=== PATIENT | male | born 1975 | race Caucasian/White ===

== ENCOUNTER 2018-05-20 08:33 | Inpatient (IN) | payer OTHER ==
[2018-05-20 09:42] LABS: BASO % 0.3 % (0.0-2.0); EOS % 0.2 % (0.0-4.0); LYMPH # 2.4 K/uL (1.0-4.3); LYMPH % 15.4 % (20.0-40.0); MEAN CELL VOLUME 84.6 fl (80.0-94.0); MEAN CORPUSCULAR HEMOGLOBIN 30.8 pg (27.0-31.0); MEAN CORPUSCULAR HGB CONC 36.4 g/dL (33.0-37.0); MEAN PLATELET VOLUME 7.8 fl (7.2-11.7); MONO # 0.9 K/uL (0.0-0.8); MONO % 5.7 % (0.0-10.0); NEUT % 78.4 % (50.0-75.0); NRBC % 0.1 % (0.0-0.0); RBC 5.53 Mil/uL (4.40-5.90); WHITE BLOOD COUNT 15.4 K/uL (4.8-10.8)
[2018-05-20 09:57] LABS: ALB/GLOB RATIO 1.1 (1.0-2.1); ALBUMIN 4.7 g/dL (3.5-5.0); ALT/SGPT 113 U/L (21-72); AST/SGOT 40 U/L (17-59); BLOOD UREA NITROGEN 21 mg/dl (9-20); CALCIUM 10.1 mg/dL (8.4-10.2); GFR NON-AFRICAN AMERICAN > 60
--- NOTE | 2018-05-20 10:39 | CT ---
Date of service: 05/20/2018 PROCEDURE: CT HEAD WITHOUT CONTRAST. HISTORY: h/o CVA at [facility]; ?convulsions this morning COMPARISON: None available. TECHNIQUE: Axial computed tomography images were obtained through the head/brain without intravenous contrast. Radiation dose: Total exam DLP = 880.6 mGy-cm. This CT exam was performed using one or more of the following dose reduction techniques: Automated exposure control, adjustment of the mA and/or kV according to patient size, and/or use of iterative reconstruction technique. FINDINGS: HEMORRHAGE: No intracranial hemorrhage. BRAIN: Low density within the right cerebellar hemisphere with edema causing leftward shift of the 4th ventricle. Possible arachnoid cyst along the anterior left sylvian fissure. No atrophy or chronic microvascular ischemic changes. VENTRICLES: Mildly prominent. No hydrocephalus. CALVARIUM: Mild thinning of the left temporal bone adjacent to possible arachnoid cyst. PARANASAL SINUSES: Unremarkable as visualized. No significant inflammatory changes. MASTOID AIR CELLS: Unremarkable as visualized. No inflammatory changes. OTHER FINDINGS: None. IMPRESSION: Low density within the right cerebellar hemisphere with edema causing leftward shift of the 4th ventricle. This is likely related to the reported subacute infarction seen at an outside hospital. Underlying right cerebellar mass could also cause this appearance. The ventricles are mildly prominent which may be related to involutional changes and/or mild obstructive hydrocephalus secondary to mass effect from edema. Correlation with outside imaging is recommended.
--- NOTE | 2018-05-20 11:16 | ED PDOC ---
HPI: Altered Mental Status Time Seen by Provider: 05/20/18 09:01 Chief Complaint (Nursing): Dizziness/Lightheaded History Per: Patient, Family (According to this patient's , Waldemar was recently discharged from [facility] [place] with diagnosis of CVA after he was transferred there from hospital in [place]. Apparently patient had fainted at the local [employer] just prior. Since discharge, he has continued to have headaches. This morning prior to call 911, his noted an episode of diffuse body shaking, rolling of markie eyes and tightening of the extremities. There was no incontinence or tongue biting. This was followed by a period of confusion. In the ER he is awake and alert. He just c/o diffuse headache. There is no report of fever, chills, neck pain or stiffness.) Past Medical History Reviewed: Historical Data, Nursing Documentation, Vital Signs Vital Signs: Last Vital Signs Temp 98.6 F 05/20/18 08:36 Pulse 84 05/20/18 08:36 Resp 17 05/20/18 08:36 BP 147/84 05/20/18 08:36 Pulse Ox 99 05/20/18 08:36 - Medical History PMH: Depression, HTN, Hypercholesterolemia - Family History Family History: States: Unknown Family Hx - Home Medications Home Medications: Ambulatory Orders Medication Instructions Recorded Azithromycin [Zithromax Z-Vamshi] 250 mg PO DAILY #1 tab 02/14/15 Prednisone 3 tab-cap PO QAM #15 tab 02/14/15 - Allergies Allergies/Adverse Reactions: Allergies Allergy/AdvReac Type Severity Reaction Status Date / Time No Known Allergies Allergy Verified 02/14/15 18:07 Review of Systems ROS Statement: Except As Marked, All Systems Reviewed And Found Negative Constitutional: Negative for: Fever Cardiovascular: Negative for: Chest Pain Respiratory: Negative for: Cough Gastrointestinal: Negative for: Nausea, Vomiting Neurological: Positive for: Headache. Negative for: Weakness, Numbness, Altered Mental Status Physical Exam - Reviewed Nursing Documentation Reviewed: Yes Vital Signs Reviewed: Yes - Physical Exam Appears: Positive for: Well, Non-toxic, No Acute Distress Head Exam: Positive for: ATRAUMATIC, NORMAL INSPECTION, NORMOCEPHALIC Skin: Positive for: Normal Color, Warm, DRY Eye Exam: Positive for: Normal appearance, EOMI, PERRL ENT: Positive for: Normal ENT Inspection Neck: Positive for: Normal Cardiovascular/Chest: Positive for: Regular Rate, Rhythm Respiratory: Positive for: CNT, Normal Breath Sounds Gastrointestinal/Abdominal: Positive for: Normal Exam, Soft Back: Positive for: Normal Inspection Extremity: Positive for: Normal ROM Neurologic/Psych: Positive for: Alert, Oriented - Laboratory Results Result Diagrams: 05/20/18 09:20 05/20/18 09:20 - ECG O2 Sat by Pulse Oximetry: 99 Disposition - Clinical Impression Clinical Impression: Seizure, Cerebellar edema - Patient ED Disposition Is Patient to be Admitted: No Doctor Will See Patient In The: Office Counseled Patient/Family Regarding: Diagnosis, Need For Followup - Disposition Disposition: Routine/Home Disposition Time: 11:00 Condition: GUARDED Instructions: Seizures, Adult (DC) - Pt Status Changed To: Hospital Disposition Of: Inpatient - Admit Certification Admit to Inpatient:: After my assessment, the patient will require hospitalization for at least two midnights. This is because of the severity of symptoms shown, intensity of services needed, and/or the medical risk in this patient being treated as an outpatient. - POA Present On Arrival: None
--- NOTE | 2018-05-20 11:37 | CP.PCM.HP ---
Addendum entered and electronically signed by Daljit Suarez MD 05/20/18 19:30: Patient was seen and examined with resident . All chart and clinical data reviewed. Case discussed with resident . Agree with assessment and plan 42 y/o male with recent diagnosis of CVA presented to Ed complaining of headache that has been going on since he was diagnosed with stroke , improving mildly with Fioricet .Pain is located mostly at the top of the head , pressure like Also as per patient had episode of full body shaking and rolling of her eyes Admitted to telemetry and neuro consulted EEG ordered MRI showed :Suspect right and right vermian infarct with hemorrhagic conversion.Secondary mass effect exerts compression on the right posterolateral border of the medulla and inferior hilary with compression of the 4th ventricle. Mild dilatation of the 3rd and lateral ventricles. Suspect small arachnoid cyst left sylvian fissure region. Continue Neuro checks Hold ASA and lovenox due to hemorrhagic conversion Permissive hypertension Accucheck control Original Note: History of Present Illness - History of Present Illness History of Present Illness: 42 yo m with history of DM2 (recently diagnosed) presents to the E.D. with complaint of headache and dizziness. Part of the history was obtained from the E.D. physician as patient was lethargic and the , who provided the history initially to the E.D physician, was not present in the room upon admission. Patient had a CVA one week ago and went to [facility]. Patient reports that since then he has had headaches and dizziness. He states that the headache is generalized and not specific at any location. Dizziness is described as his head spinning but not the room spinning, reports that he needs assistance everytime he has to get up from sitting or lying down. He states that he has had decrease in appetite. He denies decrease in strength, change in vision, falling, or trauma. 's recollection of events, as told by E.D physician: called 911 this morning because patient had full body shaking episode associated with rolling of eyes and tightening of the extremities. Denied urinary incontinence and tongue biting. PMD: does not have one FH: Mother and father both have a history stroke, patient unable to state when. SH: social drinker. Denies smoking or illicit drug use. 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 Surgical history: Denies Medical history: DM2- diagnosed last week. Medications: Pantoprazole 40mg po Daily, Norvasc 10mg po Daily, Aspirin 81mg po Daily, Lipitor 40mg po Daily, Lisinopril 40mg po Daily, Metformin 500mg po BID. ED course: V/S: 98.6F; HR: 84 ; BP: 147/84 O2Sat: 99% RA. - CBC: 15.4 > 17/46.8 < 413. - CMP: 133/ 4.8 ; 94/28 ; 21/0.8 < 150 AST/ ALT: 40/113 - CT scan of head w/o contrast: Cerebellar edema with leftward shift of 4th ventricle possibly related to subacute infarction seen at outside hospital. Underlying right cerebellar mass could cause this appearance. Patient being admitted to telemetry. Present on Admission - Present on Admission Any Indicators Present on Admission: No History of DVT/PE: No History of Uncontrolled Diabetes: No Urinary Catheter: No Decubitus Ulcer Present: No Past Patient History - Past Social History Smoking Status: Never Smoked - CARDIAC Hx Hypercholesterolemia: Yes Hx Hypertension: Yes - PSYCHIATRIC Hx Depression: Yes - SURGICAL HISTORY Hx Surgeries: No - ANESTHESIA Hx Anesthesia: No Meds Allergies/Adverse Reactions: Allergies Allergy/AdvReac Type Severity Reaction Status Date / Time No Known Allergies Allergy Verified 02/14/15 18:07 Physical Exam - Constitutional Appears: Non-toxic, No Acute Distress Additional comments: Lethargic - Head Exam Head Exam: NORMAL INSPECTION - Eye Exam Eye Exam: Normal appearance. absent: Nystagmus, Scleral icterus Pupil Exam: NORMAL ACCOMODATION, PERRL - ENT Exam ENT Exam: Mucous Membranes Moist - Respiratory Exam Respiratory Exam: Clear to Auscultation Bilateral, NORMAL BREATHING PATTERN. absent: Decreased Breath Sounds, Rales, Rhonchi, Wheezes, Stridor - Cardiovascular Exam Cardiovascular Exam: REGULAR RHYTHM, RRR, +S1, +S2. absent: Gallop, Rubs, +S4, Systolic Murmur - GI/Abdominal Exam GI & Abdominal Exam: Normal Bowel Sounds, Soft. absent: Distended, Firm, Guarding, Rebound, Rigid, Tenderness - Extremities Exam Extremities exam: Positive for: normal inspection, pedal pulses present. Negative for: calf tenderness, pedal edema, tenderness - Neurological Exam Additional comments: Lethargic. Patient is able to perform finger to nose appropriately. Unable to a ssess gait as patient is dizzy. Strength 5/5 bilaterally all extremities. - Psychiatric Exam Psychiatric exam: Normal Affect - Skin Skin Exam: Dry, Intact, Normal Color, Warm Results - Vital Signs Recent Vital Signs: Last Vital Signs Temp 98.6 F 05/20/18 08:36 Pulse 84 05/20/18 08:36 Resp 17 05/20/18 08:36 BP 147/84 05/20/18 08:36 Pulse Ox 99 05/20/18 11:19 - Labs Result Diagrams: 05/20/18 09:20 05/20/18 09:20 Labs: Laboratory Results - last 24 hr 05/20/18 05/20/18 05/20/18 08:37 09:20 09:20 WBC 15.4 H D RBC 5.53 Hgb 17.0 Hct 46.8 MCV 84.6 D MCH 30.8 MCHC 36.4 RDW 13.0 Plt Count 413 H D MPV 7.8 Neut % (Auto) 78.4 H Lymph % (Auto) 15.4 L [place] % (Auto) 5.7 Eos % (Auto) 0.2 Baso % (Auto) 0.3 Neut # (Auto) 12.0 H Lymph # (Auto) 2.4 [place] # (Auto) 0.9 H Eos # (Auto) 0.0 Baso # (Auto) 0.0 Sodium 133 Potassium 4.8 Chloride 94 L Carbon Dioxide 28 Anion Gap 16 BUN 21 H Creatinine 0.8 Est GFR ( Amer) > 60 Est GFR (Non-Af Amer) > 60 POC Glucose (mg/dL) 152 H Random Glucose 150 H Calcium 10.1 Total Bilirubin 1.1 AST 40 ALT 113 H D Alkaline Phosphatase 80 Total Protein 8.9 H Albumin 4.7 Globulin 4.1 H Albumin/Globulin Ratio 1.1 Assessment & Plan (1) Seizure Status: Acute (2) Diabetes type 2, controlled Status: Acute (3) DVT prophylaxis Status: Acute - Assessment and Plan (Free Text) Assessment: 42 yo m with history of DM2 (recently diagnosed) presents to the E.D. with complaint of headache and dizziness found to have possible seizure-like activity this morning and new findings on CT scan of head admitted to r/o seizure and acute vs. subacute stroke. 1. Seizure - Given previous history of CVA at previous hospital last week and new CT findings of cerebellar edema, possibly secondary to CVA. - Admitted to telemetry for close monitoring - Patient placed on fall precautions. - Electrolytes within normal limits. - Neuro check Q4H - Neurology consult appreciated - EEG ordered 2. Acute vs. subacute stroke - CT scan of head w/o contrast: Cerebellar edema with leftward shift of 4th ventricle possibly related to subacute infarction seen at outside hospital. Underlying right cerebellar mass could cause this appearance. Patient being admitted to telemetry. - MRI with and without contrast - Continue Aspirin and atorvastatin - Neurology consult appreciated - Bed elevated to 45 degrees - Speech evaluation placed - PT/OT evaluation placed - Neuro checks Q4H 3. Leukocytosis - Likely reactive - Continue to monitor. 4. Hypertension - Continue home medication of lisinopril 10mg and Norvasc 10mg daily. - Continue to monitor V/S 5. DM type 2 - Continue Metformin 500mg BID - Accuchecks - Hypoglycemia protocol - Continue to monitor glucose. 6. DVT prophylaxis: - Lovenox 40mg sc daily.
[2018-05-20] MEDS ORDERED: Glucagon Recombinant 1 mg Inj IM PRN (12:07)
[2018-05-20] MEDS ORDERED: Dextrose 50% SYRINGE Inj (50 ml) IV PRN (12:07)
[2018-05-20 12:16] LABS: PROLACTIN 17.1 ng/mL (3.7-17.9)
[2018-05-20] MEDS ORDERED: Gadodiamide 287 MG/ML VIAL (15ML) IV ONE (13:27)
[2018-05-20] MEDS ORDERED: Sodium Chloride 0.9% 500 ML IV SCH (15:30)
[2018-05-20] MEDS: Insulin Lispro (humaLOG) 100 Units/ml Inj SC SCH ×2 (16:39→21:51)
[2018-05-20 16:47] VITALS: BMI 30.7
--- NOTE | 2018-05-20 17:16 | MRI ---
Date of service: 05/20/2018. PROCEDURE: MRI BRAIN WITH AND WITHOUT CONTRAST.. COMPARISON: Comparison made with prior CT scan brain obtained earlier same day. TECHNIQUE: Multiplanar, multisequence MR images of the brain were obtained with and without intravenous contrast enhancement.. FINDINGS: HEMORRHAGE: The current study reveals a large area of prolonged T2 signal involving the right inferomedial cerebellar hemisphere and right vermis with a more localized area of bright T1 signal along the medial aspect of the right cerebral hemisphere that corresponds to darker T2 signal . Extensive surface enhancement of the cerebellar folia. Findings could hemorrhagic infarct with hemorrhagic degradation intracellular methemoglobin). There is secondary mass effect with compression of overlying cerebellar folia and compression of the right aspect of the 4th ventricle and right posterolateral border of the middle and inferior hilary.. There is inferior displacement of the right cerebellar tonsil. BRAIN PARENCHYMA: Minor slightly confluent prolonged T2 signal changes seen in the periventricular white matter which is of uncertain etiology though that probably represents mild FLAIR related CSF interface artifact. The there are a few tiny focal areas of increased T2 signal scattered about the frontal subcortical and deeper white matter right cerebral hemisphere nonspecific. None of these changes exhibit contrast enhancement. Mild generalized volume loss. Suspect small arachnoid cyst left sylvian fissure region. ENHANCEMENT: No enhancing parenchymal nor extra-axial masses.. No evidence of abnormal meningeal enhancement VENTRICLES: There is mild dilatation of the 3rd and lateral ventricles. CRANIUM: Unremarkable. ORBITS: Orbits and contents unremarkable.. Small focal area polypoid like mucosal thickening PARANASAL SINUSES/MASTOIDS: At least 2 small focal areas of polypoid like mucosal thickening floor left maxillary antrum. VASCULAR SYSTEM: Visualized major vascular flow voids at skull base patent OTHER FINDINGS: None. IMPRESSION: Suspect right and right vermian infarct with hemorrhagic conversion.. Secondary mass effect exerts compression on the right posterolateral border of the medulla and inferior hilary with compression of the 4th ventricle. Mild dilatation of the 3rd and lateral ventricles. Suspect small arachnoid cyst left sylvian fissure region. See above discussion for additional details and findings. The discussed with 4 N nurse Marrero at approximately 4:50 p.m. with written down and read back verification.
[2018-05-20] MEDS: Oxycodone/Acetaminophen 5/325 mg Tab PO PRN (21:04)
[2018-05-21] MEDS: Oxycodone/Acetaminophen 5/325 mg Tab PO PRN ×3 (04:25→17:28)
[2018-05-21 05:56] LABS: BASO % 0.2 % (0.0-2.0); EOS # 0.1 K/uL (0.0-0.7); EOS % 0.6 % (0.0-4.0); HEMOGLOBIN 16.9 g/dL (12.0-18.0); LYMPH # 3.4 K/uL (1.0-4.3); LYMPH % 24.1 % (20.0-40.0); MEAN CELL VOLUME 84.9 fl (80.0-94.0); MEAN CORPUSCULAR HEMOGLOBIN 30.7 pg (27.0-31.0); MEAN CORPUSCULAR HGB CONC 36.2 g/dL (33.0-37.0); MEAN PLATELET VOLUME 8.2 fl (7.2-11.7); MONO % 7.1 % (0.0-10.0); NEUT # 9.6 K/uL (1.8-7.0); NRBC % 0.3 % (0.0-0.0); RBC 5.51 Mil/uL (4.40-5.90); RED CELL DISTRIBUTION WIDTH 13.2 % (11.5-14.5); WHITE BLOOD COUNT 14.2 K/uL (4.8-10.8)
[2018-05-21 05:58] LABS: BLOOD UREA NITROGEN 25 mg/dl (9-20); GFR NON-AFRICAN AMERICAN > 60
[2018-05-21] MEDS: Insulin Lispro (humaLOG) 100 Units/ml Inj SC SCH ×4 (08:24→21:34)
[2018-05-21] MEDS ORDERED: Pneumococcal 23-Valent Vaccine IM ONE (08:35)
[2018-05-21] MEDS ORDERED: Influenza Vaccine 60 MCG/0.5 ML SYR (3 yr & up) IM ONE (08:35)
[2018-05-21] MEDS ORDERED: Enoxaparin 40 mg Syringe SC SCH (09:00)
--- NOTE | 2018-05-21 09:27 | CP.PCM.PN ---
Addendum entered and electronically signed by Adan Friedman MD 05/21/18 20:17: Patient to be transferred to ICU as per Neurology recommendations for continued evaluation and observation. Addendum entered and electronically signed by Daljit Suarez MD 05/21/18 14:35: Patient seen and examined bedside . Complains of intractable headache MRI results appreciated Hemodynamically stable waiting on medical records from [facility] waiting on neuro consult with Dr. Machuca Discussed with resident . Agree with assessment and plan Continue telemetry monitoring Original Note: Subjective - Date & Time of Evaluation Date of Evaluation: 05/21/18 Time of Evaluation: 07:00 - Subjective Subjective: Patient seen and examined at bedside. HE is lying down clutching his head. He is reporting that he is dizzy and he has a 6/10 headache- unchanged. Denies chest pain, shortness of breath, vision changes, weakness or tingling. Objective - Vital Signs/Intake and Output Vital Signs (last 24 hours): Temp Pulse Resp BP Pulse Ox 98.2 F 85 18 122/87 98 05/21/18 07:42 05/21/18 08:18 05/21/18 07:42 05/21/18 07:42 05/21/18 07:42 - Medications Medications: Current Medications Acetaminophen (Tylenol 325mg Tab) 650 mg PO Q6 PRN PRN Reason: Pain, moderate (4-7) Amlodipine Besylate (Norvasc) 10 mg PO DAILY [facility] Atorvastatin Calcium (Lipitor) 40 mg PO DAILY [facility] Dextrose (Dextrose 50% Inj) 0 ml IV STAT PRN; Protocol PRN Reason: Hypoglycemia Protocol Dextrose (Glutose 15) 0 gm PO ONCE PRN; Protocol PRN Reason: Hypoglycemia Protocol Glucagon (Glucagen Diagnostic Kit) 0 mg IM STAT PRN; Protocol PRN Reason: Hypoglycemia Protocol Insulin Human Lispro (Humalog) [address] [facility]; Protocol Last Admin: 05/21/18 08:24 Dose: Not Given Lisinopril (Zestril) 10 mg PO DAILY [facility] Metformin HCl (Glucophage) 500 mg PO BID [facility] Last Admin: 05/20/18 16:37 Dose: 500 mg Oxycodone/Acetaminophen (Percocet 5/325 Mg Tab) 1 tab PO Q6 PRN PRN Reason: Pain, severe (8-10) Stop: 05/23/18 16:30 Last Admin: 05/21/18 04:25 Dose: 1 tab Pantoprazole Sodium (Protonix Ec Tab) 40 mg PO DAILY [facility] - Labs Labs: 05/21/18 05:25 05/21/18 05:25 - Constitutional Appears: Non-toxic, No Acute Distress (Patient is lying down clutching his head.) - ENT Exam ENT Exam: Mucous Membranes Moist - Respiratory Exam Respiratory Exam: Clear to Ausculation Bilateral, NORMAL BREATHING PATTERN. absent: Decreased Breath Sounds, Rales, Rhonchi, Wheezes, Stridor - Cardiovascular Exam Cardiovascular Exam: REGULAR RHYTHM, +S1, +S2. absent: Clicks, Diastolic murmur, Gallop, RRR, +S4, Murmur - GI/Abdominal Exam GI & Abdominal Exam: Soft, Normal Bowel Sounds. absent: Distended, Firm, Guarding, Rigid, Tenderness, Pulsatile Mass - Extremities Exam Extremities Exam: Normal Inspection. absent: Calf Tenderness, Pedal Edema, Tend erness - Neurological Exam Neurological Exam: Oriented x3 (Patient is closing his eyes and states he has a bad headache- clutching his head. Strength 5/5 bilateral extremities. Sensation in tact. ) - Psychiatric Exam Psychiatric exam: Normal Affect - Skin Skin Exam: Dry, Intact, Normal Color, Warm Assessment and Plan (1) Seizure Status: Acute (2) Diabetes type 2, controlled Status: Acute (3) DVT prophylaxis Status: Acute - Assessment and Plan (Free Text) Assessment: 42 yo m with history of DM2 (recently diagnosed) presents to the E.D. with complaint of headache and dizziness found to have possible seizure-like activity this morning and new findings on CT scan of head admitted to r/o seizure and acute vs. subacute stroke. Plan: 1. Seizure - Given previous history of CVA at previous hospital last week and new CT findings of cerebellar edema, possibly secondary to CVA. - Admitted to telemetry for close monitoring - Patient placed on fall precautions. - Electrolytes within normal limits. - Neuro check Q4H - Neurology consult appreciated - EEG ordered 2. Acute vs. subacute stroke - MRI showed :Suspect right and right vermian infarct with hemorrhagic conversion.Secondary mass effect exerts compression on the right posterolateral border of the medulla and inferior hilary with compression of the 4th ventricle. Mild dilatation of the 3rd and lateral ventricles. Suspect small arachnoid cyst left sylvian fissure region. - Neurology consult appreciated - Bed elevated to 45 degrees - Neuro checks Q4H - Hold ASA and lovenox due to hemorrhagic conversion - Permissive hypertension - Accucheck control 3. Leukocytosis - Likely reactive - Continue to monitor. 4. Hypertension - chronic - Continue home medication of lisinopril 10mg and Norvasc 10mg daily. - Continue to monitor V/S 5. DM type 2 - Continue Metformin 500mg BID - Accuchecks - Hypoglycemia protocol - Continue to monitor glucose. 6. DVT prophylaxis: - SCD's
[2018-05-21 09:56] LABS: INR 1.2
[2018-05-21] MEDS: Pantoprazole 40 mg EC Tab PO SCH (09:56)
[2018-05-21 10:14] LABS: HDL CHOLESTEROL 46 MG/DL (30-70)
[2018-05-21 10:25] LABS: LDL CHOLESTEROL 112 mg/dL (0-129)
[2018-05-21] MEDS ORDERED: Mannitol 12.5 gm/50 ml Inj IV ONE ×2 (19:00→19:14)
[2018-05-21] MEDS ORDERED: Dexamethasone 4 mg/1 ml IV ONE (19:00)
--- NOTE | 2018-05-21 21:13 | CP.PCM.CON ---
History of Present Illness - History of Present Illness History of Present Illness: Reason for Consult: ICU Obs for cerebellar bleed HPI: 42 M PMH HTN, NIDDM2, admitted yesterday for seizure, currently hemodynamically stable, was recently discharged from [facility] S/P CVA after being transferred there about a week ago from a local community hospital. CT head showed low density R cerebellar hemisphere with edema causing L shift of 4th ventricle, likely related to reported subacute infarction seen at outside hospital. MRI brain showed R vermian infarct with hemorrhagic conversion. As per neurology, transfer to ICU this evening for observation in ICU. Pt is HD stable. NAD. ROS: per HPI all other systems reviewed and negative. Past Patient History - Past Medical History & Family History Past Medical History?: Yes - Past Social History Smoking Status: Never Smoked - CARDIAC Hx Hypercholesterolemia: Yes Hx Hypertension: Yes - PULMONARY Hx Respiratory Disorders: No - NEUROLOGICAL Hx Neurological Disorder: Yes HX Cerebrovascular Accident: Yes - HEENT Hx HEENT Problems: No - RENAL Hx Chronic Kidney Disease: No - ENDOCRINE/METABOLIC Hx Diabetes Mellitus Type 2: Yes - HEMATOLOGICAL/ONCOLOGICAL Hx Blood Disorders: No - INTEGUMENTARY Hx Dermatological Problems: No - MUSCULOSKELETAL/RHEUMATOLOGICAL Hx Musculoskeletal Disorders: No Hx Falls: No - GASTROINTESTINAL Hx Gastrointestinal Disorders: No - GENITOURINARY/GYNECOLOGICAL Hx Genitourinary Disorders: No - PSYCHIATRIC Hx Psychophysiologic Disorder: Yes Hx Depression: Yes Hx Substance Use: No - SURGICAL HISTORY Hx Surgeries: No - ANESTHESIA Hx Anesthesia: No Hx Anesthesia Reactions: No Hx Malignant Hyperthermia: No Has any member of the family had a problem w/ anesthesia?: No Meds Allergies/Adverse Reactions: Allergies Allergy/AdvReac Type Severity Reaction Status Date / Time No Known Allergies Allergy Verified 02/14/15 18:07 - Medications Medications: Current Medications Acetaminophen (Tylenol 325mg Tab) 650 mg PO Q6 PRN PRN Reason: Pain, moderate (4-7) Amlodipine Besylate (Norvasc) 10 mg PO DAILY [facility] Last Admin: 05/21/18 09:56 Dose: 10 mg Atorvastatin Calcium (Lipitor) 40 mg PO DAILY [facility] Last Admin: 05/21/18 09:55 Dose: 40 mg Dextrose (Dextrose 50% Inj) 0 ml IV STAT PRN; Protocol PRN Reason: Hypoglycemia Protocol Dextrose (Glutose 15) 0 gm PO ONCE PRN; Protocol PRN Reason: Hypoglycemia Protocol Glucagon (Glucagen Diagnostic Kit) 0 mg IM STAT PRN; Protocol PRN Reason: Hypoglycemia Protocol Insulin Human Lispro (Humalog) 0 units SC ACHS [facility]; Protocol Last Admin: 05/21/18 17:26 Dose: Not Given Lisinopril (Zestril) 10 mg PO DAILY [facility] Last Admin: 05/21/18 09:56 Dose: 10 mg Metformin HCl (Glucophage) 500 mg PO BID [facility] Last Admin: 05/21/18 17:25 Dose: 500 mg Oxycodone/Acetaminophen (Percocet 5/325 Mg Tab) 1 tab PO Q6 PRN PRN Reason: Pain, severe (8-10) Stop: 05/23/18 16:30 Last Admin: 05/21/18 17:28 Dose: 1 tab Pantoprazole Sodium (Protonix Ec Tab) 40 mg PO DAILY [facility] Last Admin: 05/21/18 09:56 Dose: 40 mg Physical Exam - Constitutional Appears: Non-toxic, No Acute Distress - Head Exam Head Exam: NORMAL INSPECTION, NORMOCEPHALIC - Eye Exam Eye Exam: EOMI, Normal appearance, PERRL Pupil Exam: NORMAL ACCOMODATION, PERRL - ENT Exam ENT Exam: Mucous Membranes Moist, Normal Exam - Neck Exam Neck exam: Positive for: Normal Inspection - Respiratory Exam Respiratory Exam: Clear to Auscultation Bilateral, NORMAL BREATHING PATTERN - Cardiovascular Exam Cardiovascular Exam: RRR, +S1, +S2 - GI/Abdominal Exam GI & Abdominal Exam: Normal Bowel Sounds, Soft. absent: Mass - Extremities Exam Extremities exam: Positive for: normal inspection. Negative for: tenderness - Neurological Exam Neurological exam: Alert, Oriented x3 Additional comments: no focal deficits - Psychiatric Exam Psychiatric exam: Normal Affect, Normal Mood Results - Vital Signs Recent Vital Signs: Last Vital Signs Temp 98.3 F 05/21/18 19:23 Pulse 90 05/21/18 19:23 Resp 20 05/21/18 19:23 BP 121/79 05/21/18 19:23 Pulse Ox 98 05/21/18 19:23 - Labs Result Diagrams: 05/21/18 05:25 05/21/18 05:25 Labs: Laboratory Results - last 24 hr 05/20/18 05/20/18 05/21/18 10:58 21:27 05:25 WBC RBC Hgb Hct MCV MCH MCHC RDW Plt Count MPV Neut % (Auto) Lymph % (Auto) [place] % (Auto) Eos % (Auto) Baso % (Auto) Neut # (Auto) Lymph # (Auto) [place] # (Auto) Eos # (Auto) Baso # (Auto) PT INR APTT Sodium 134 Potassium 4.5 Chloride 95 L Carbon Dioxide 25 Anion Gap 19 BUN 25 H Creatinine 0.7 L Est GFR ( Amer) > 60 Est GFR (Non-Af Amer) > 60 POC Glucose (mg/dL) 97 Random Glucose 123 H Hemoglobin A1c 6.9 H Calcium 10.0 Triglycerides Cholesterol LDL Cholesterol Direct HDL Cholesterol 05/21/18 05/21/18 05/21/18 05:25 05:49 09:30 WBC 14.2 H RBC 5.51 Hgb 16.9 Hct 46.8 MCV 84.9 MCH 30.7 MCHC 36.2 RDW 13.2 Plt Count 399 MPV 8.2 Neut % (Auto) 68.0 Lymph % (Auto) 24.1 [place] % (Auto) 7.1 Eos % (Auto) 0.6 Baso % (Auto) 0.2 Neut # (Auto) 9.6 H Lymph # (Auto) 3.4 [place] # (Auto) 1.0 H Eos # (Auto) 0.1 Baso # (Auto) 0.0 PT 13.0 INR 1.2 APTT 30.0 Sodium Potassium Chloride Carbon Dioxide Anion Gap BUN Creatinine Est GFR ( Amer) Est GFR (Non-Af Amer) POC Glucose (mg/dL) 106 Random Glucose Hemoglobin A1c Calcium Triglycerides Cholesterol LDL Cholesterol Direct HDL Cholesterol 05/21/18 05/21/18 05/21/18 09:30 11:14 15:51 WBC RBC Hgb Hct MCV MCH MCHC RDW Plt Count MPV Neut % (Auto) Lymph % (Auto) [place] % (Auto) Eos % (Auto) Baso % (Auto) Neut # (Auto) Lymph # (Auto) [place] # (Auto) Eos # (Auto) Baso # (Auto) PT INR APTT Sodium Potassium Chloride Carbon Dioxide Anion Gap BUN Creatinine Est GFR ( Amer) Est GFR (Non-Af Amer) POC Glucose (mg/dL) 129 H 142 H Random Glucose Hemoglobin A1c Calcium Triglycerides 155 H Cholesterol 183 LDL Cholesterol Direct 112 HDL Cholesterol 46 Assessment & Plan - Assessment and Plan (Free Text) Plan: 42 M PMH HTN, NIDDM2, admitted yesterday for seizure, currently hemodynamically stable, was recently discharged from [facility] S/P CVA after being transferred there about a week ago from a local community hospital. CT head showed low density R cerebellar hemisphere with edema causing L shift of 4th ventricle, likely related to reported subacute infarction seen at outside hospital. MRI brain showed R vermian infarct with hemorrhagic conversion. As per neurology, transfer to ICU this evening for observation in ICU. Pt is HD stable. NAD. s/p CVA, cerebellar infarct with hemorrhagic conversion - Neurology consult Dr. Machuca - monitor in ICU 24 hours for possible further complications such as worsening bleed and herniation - neurochecks q1 hours - repeat head CT read pending - no focal deficits - HD stable, nad.
--- NOTE | 2018-05-21 23:25 | CP.PCM.CON ---
History of Present Illness - History of Present Illness History of Present Illness: 42 yr old male who was admitted to [facility] and was found to have a subacute right cerebellar infarct/hypodensity with different densities, with mass effect on the third and fourth ventricle. Mr. Dias was apparently evaluated at [facility] and already was diagnosed with this lesion. It is unclear if he had a neurology or neurosurgical consult, but he was discharged and presented to [facility]. MRI brain was performed as well and shows that he has, inaddition, areas of hemorrhage within acute right vermian stroke with 4th ventricle compression. Patient has a headache, and is awake but transfer to ICU was arranged in light o f the herniation and cerebellar location. Headache is 9/10, throbbing in nature, associated with photophobia, not relieved by fioricet. Decadron 8mg IV started as well as mannitol and neurosurgical consult placed. Patient transferred to ICu and is stable with neuro checks. ROS; headache, nausea, no vomiting. no weakness, no diarrhea. PMH/PSH: no htn, no dm. FH/SH; Possible smoking history. All: nkda On exam: Neurological exam is normal except for right hand dysmetria. gait not ass essed. AAOx3. PERRl. Cn 2-12 normal. no weakness, no sensory deficits. Past Patient History - Past Medical History & Family History Past Medical History?: Yes - Past Social History Smoking Status: Never Smoked - CARDIAC Hx Hypercholesterolemia: Yes Hx Hypertension: Yes - PULMONARY Hx Respiratory Disorders: No - NEUROLOGICAL Hx Neurological Disorder: Yes HX Cerebrovascular Accident: Yes - HEENT Hx HEENT Problems: No - RENAL Hx Chronic Kidney Disease: No - ENDOCRINE/METABOLIC Hx Diabetes Mellitus Type 2: Yes - HEMATOLOGICAL/ONCOLOGICAL Hx Blood Disorders: No - INTEGUMENTARY Hx Dermatological Problems: No - MUSCULOSKELETAL/RHEUMATOLOGICAL Hx Musculoskeletal Disorders: No Hx Falls: No - GASTROINTESTINAL Hx Gastrointestinal Disorders: No - GENITOURINARY/GYNECOLOGICAL Hx Genitourinary Disorders: No - PSYCHIATRIC Hx Psychophysiologic Disorder: Yes Hx Depression: Yes Hx Substance Use: No - SURGICAL HISTORY Hx Surgeries: No - ANESTHESIA Hx Anesthesia: No Hx Anesthesia Reactions: No Hx Malignant Hyperthermia: No Has any member of the family had a problem w/ anesthesia?: No Meds Allergies/Adverse Reactions: Allergies Allergy/AdvReac Type Severity Reaction Status Date / Time No Known Allergies Allergy Verified 02/14/15 18:07 - Medications Medications: Current Medications Acetaminophen (Tylenol 325mg Tab) 650 mg PO Q6 PRN PRN Reason: Pain, moderate (4-7) Last Admin: 05/21/18 22:41 Dose: 650 mg Amlodipine Besylate (Norvasc) 10 mg PO DAILY [facility] Last Admin: 05/21/18 09:56 Dose: 10 mg Atorvastatin Calcium (Lipitor) 40 mg PO DAILY [facility] Last Admin: 05/21/18 09:55 Dose: 40 mg Dextrose (Dextrose 50% Inj) 0 ml IV STAT PRN; Protocol PRN Reason: Hypoglycemia Protocol Dextrose (Glutose 15) 0 gm PO ONCE PRN; Protocol PRN Reason: Hypoglycemia Protocol Glucagon (Glucagen Diagnostic Kit) 0 mg IM STAT PRN; Protocol PRN Reason: Hypoglycemia Protocol Insulin Human Lispro (Humalog) 0 units SC [facility]; Protocol Last Admin: 05/21/18 21:34 Dose: Not Given Lisinopril (Zestril) 10 mg PO DAILY [facility] Last Admin: 05/21/18 09:56 Dose: 10 mg Metformin HCl (Glucophage) 500 mg PO BID [facility] Last Admin: 05/21/18 17:25 Dose: 500 mg Oxycodone/Acetaminophen (Percocet 5/325 Mg Tab) 1 tab PO Q6 PRN PRN Reason: Pain, severe (8-10) Stop: 05/23/18 16:30 Last Admin: 05/21/18 17:28 Dose: 1 tab Pantoprazole Sodium (Protonix Ec Tab) 40 mg PO DAILY [facility] Last Admin: 05/21/18 09:56 Dose: 40 mg Results - Vital Signs Recent Vital Signs: Last Vital Signs Temp 99.0 F 05/21/18 22:41 Pulse 85 05/21/18 22:00 Resp 18 05/21/18 22:00 BP 112/74 05/21/18 22:00 Pulse Ox 100 05/21/18 22:00 - Labs Result Diagrams: 05/21/18 05:25 05/21/18 05:25 Labs: Laboratory Results - last 24 hr 05/20/18 05/21/18 05/21/18 10:58 05:25 05:25 WBC 14.2 H RBC 5.51 Hgb 16.9 Hct 46.8 MCV 84.9 MCH 30.7 MCHC 36.2 RDW 13.2 Plt Count 399 MPV 8.2 Neut % (Auto) 68.0 Lymph % (Auto) 24.1 [place] % (Auto) 7.1 Eos % (Auto) 0.6 Baso % (Auto) 0.2 Neut # (Auto) 9.6 H Lymph # (Auto) 3.4 [place] # (Auto) 1.0 H Eos # (Auto) 0.1 Baso # (Auto) 0.0 PT INR APTT Sodium 134 Potassium 4.5 Chloride 95 L Carbon Dioxide 25 Anion Gap 19 BUN 25 H Creatinine 0.7 L Est GFR ( Amer) > 60 Est GFR (Non-Af Amer) > 60 POC Glucose (mg/dL) Random Glucose 123 H Hemoglobin A1c 6.9 H Calcium 10.0 Triglycerides Cholesterol LDL Cholesterol Direct HDL Cholesterol 05/21/18 05/21/18 05/21/18 05:49 09:30 09:30 WBC RBC Hgb Hct MCV MCH MCHC RDW Plt Count MPV Neut % (Auto) Lymph % (Auto) [place] % (Auto) Eos % (Auto) Baso % (Auto) Neut # (Auto) Lymph # (Auto) [place] # (Auto) Eos # (Auto) Baso # (Auto) PT 13.0 INR 1.2 APTT 30.0 Sodium Potassium Chloride Carbon Dioxide Anion Gap BUN Creatinine Est GFR ( Amer) Est GFR (Non-Af Amer) POC Glucose (mg/dL) 106 Random Glucose Hemoglobin A1c Calcium Triglycerides 155 H Cholesterol 183 LDL Cholesterol Direct 112 HDL Cholesterol 46 05/21/18 05/21/18 11:14 15:51 WBC RBC Hgb Hct MCV MCH MCHC RDW Plt Count MPV Neut % (Auto) Lymph % (Auto) [place] % (Auto) Eos % (Auto) Baso % (Auto) Neut # (Auto) Lymph # (Auto) [place] # (Auto) Eos # (Auto) Baso # (Auto) PT INR APTT Sodium Potassium Chloride Carbon Dioxide Anion Gap BUN Creatinine Est GFR ( Amer) Est GFR (Non-Af Amer) POC Glucose (mg/dL) 129 H 142 H Random Glucose Hemoglobin A1c Calcium Triglycerides Cholesterol LDL Cholesterol Direct HDL Cholesterol Assessment & Plan - Assessment and Plan (Free Text) Assessment: 42 yr old male with subacute cerebellar infarct with hemorrhagic conversion, exerting mass effect on the 4th and 3rd ventricle, most likely day 3 from onset of stroke. At this point we will still keep him off anticoagulation in light of his hemorrhagic conversion. He is stable thus far, with severe headache that is a result of the infarct but he is awake and following commands. ICu team and neurosurgical opinion appreciated. There will be no intervention at this point unless he worsens. I suspect he may have underlying carcinoma and cta head and neck is needed. Nihss: 2 Plan: 1. Stroke workup: ECho CTA head and neck. Lipid profile no aspirin for now. Permissive htn. 2. neuro checks q 2 hours. 3. no antiepileptics at this time. 4. repeat ct head in am. thank you for consulting neurology Dr. bland
[2018-05-22] MEDS ORDERED: Dexamethasone 4 mg/1 ml IV SCH (01:00)
[2018-05-22 05:52] LABS: HEMOGLOBIN 16.9 g/dL (12.0-18.0); MEAN CELL VOLUME 84.5 fl (80.0-94.0); MEAN CORPUSCULAR HEMOGLOBIN 30.7 pg (27.0-31.0); MEAN CORPUSCULAR HGB CONC 36.4 g/dL (33.0-37.0); RBC 5.51 Mil/uL (4.40-5.90); RED CELL DISTRIBUTION WIDTH 13.1 % (11.5-14.5); WHITE BLOOD COUNT 11.9 K/uL (4.8-10.8)
[2018-05-22 06:01] LABS: BLOOD UREA NITROGEN 23 mg/dl (9-20); CALCIUM 10.3 mg/dL (8.4-10.2); GFR NON-AFRICAN AMERICAN > 60
[2018-05-22] MEDS: Pantoprazole 40 mg EC Tab PO SCH (08:30)
--- NOTE | 2018-05-22 08:45 | CT ---
Date of service: 05/21/2018 PROCEDURE: CT HEAD WITHOUT CONTRAST. HISTORY: follow up hemorrhagic conversion COMPARISON: 05/20/2018 TECHNIQUE: Axial computed tomography images were obtained through the head/brain without intravenous contrast. Radiation dose: Total exam DLP = 808.54 mGy-cm. This CT exam was performed using one or more of the following dose reduction techniques: Automated exposure control, adjustment of the mA and/or kV according to patient size, and/or use of iterative reconstruction technique. FINDINGS: HEMORRHAGE: Low attenuation in the right cerebellar hemisphere extending to the peduncle and possibly midbrain. Midline shift towards the left of approximately 8 mm. Thickening of the cortical fold along the posterior right lateral aspect of the right cerebellar hemisphere. Multifocal punctate hemorrhage within the inferior right cerebellar hemisphere, medially, corresponding to regions of para magnetic artifact on gradient echo images from MRI of 05/20/2018. There is effacement to some extent of the perimesencephalic cistern. There is no cerebellar tonsillar herniation. There is preservation of the normal cortical eugene matter attenuation. The findings are concerning for a neoplasm. In conjunction with the absence of diffusion restriction on MRI of the previous day, these findings are concerning for a neoplasm in the right cerebellar hemisphere, vermis and extending to the right cerebellar peduncle and possibly midbrain. BRAIN: As above no evidence of acute infarct VENTRICLES: Posterior fossa midline shift towards the left with mass effect upon the 4th ventricle. CALVARIUM: Unremarkable. PARANASAL SINUSES: Unremarkable as visualized. No significant inflammatory changes. MASTOID AIR CELLS: Unremarkable as visualized. No inflammatory changes. OTHER FINDINGS: None. 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 There is punctate hemorrhage seen within this mass on the current CT examination corresponding to areas of paramagnetic artifact on gradient echo images of the MRI examination of 05/20/2018. No evidence of cerebellar tonsillar herniation. Posterior fossa midline shift towards the left of approximately 8 mm. Mass effect on the 4th ventricle. The preliminary findings for this examination were reported by [facility] Radiology at 10:01 p.m. on 05/21/2018.. There is concurrence of this report with the preliminary findings.
--- NOTE | 2018-05-22 09:12 | CP.PCM.PN ---
Addendum entered and electronically signed by Daljit Suarez MD 05/22/18 17:46: Patient was seen and examined in ICU . All chart and clinical data reviewed .Case discussed with resident .Agree with assessment and plan. Still complains of MEHTA (slightly better )and dizziness while lying down.Neurologically intact On Manitol and Decadron IV Records from [facility] ( in [facility] ) received and reviewed . Patient was initially admitted to [facility] and after transferred to [facility] and discharged 05/18/[address] head from [facility] showed :Subacute right cerebellar infarct with edema , no new hemorrhage.Fourth ventricular appears larger will bring Imaging in a CD Continue ICU monitoring Check serum osmolality Original Note: Subjective - Date & Time of Evaluation Date of Evaluation: 05/22/18 Time of Evaluation: 09:09 - Subjective Subjective: Patient was seen and examined at bedside. He is clutching his head and resting on his bed in no acute distress. He was transferred yesterday to the ICU as per Dr. Machuca's request given recent CVA history at previous hospital. He has the same complaint of the 6/10 headache and dizziness that he says is the same for the past week and a half. He reports that the pain medication has helped his headache decrease from a 610 to 5/10. He states he has minimal appetite. Denies changes in vision, blurry vision, chest pain, shortness of breath, calf pain, nausea and vomiting. Objective - Vital Signs/Intake and Output Vital Signs (last 24 hours): Temp Pulse Resp BP Pulse Ox 98.7 F 89 19 149/100 H 98 05/22/18 08:00 05/22/18 08:00 05/22/18 08:00 05/22/18 08:00 05/22/18 08:00 Intake and Output: 05/22/18 05/22/18 06:59 18:59 Intake Total 0 Output Total 600 Balance -600 - Medications Medications: Current Medications Acetaminophen (Tylenol 325mg Tab) 650 mg PO Q6 PRN PRN Reason: Pain, moderate (4-7) Last Admin: 05/22/18 08:31 Dose: 650 mg Atorvastatin Calcium (Lipitor) 40 mg PO DAILY [facility] Last Admin: 05/22/18 08:26 Dose: 40 mg Dexamethasone (Decadron Inj) 8 mg IV Q8 [facility] Last Admin: 05/22/18 08:25 Dose: 8 mg Dextrose (Dextrose 50% Inj) 0 ml IV STAT PRN; Protocol PRN Reason: Hypoglycemia Protocol Dextrose (Glutose 15) 0 gm PO ONCE PRN; Protocol PRN Reason: Hypoglycemia Protocol Glucagon (Glucagen Diagnostic Kit) 0 mg IM STAT PRN; Protocol PRN Reason: Hypoglycemia Protocol Insulin Human Lispro (Humalog) 0 units SC ACHS [facility]; Protocol Last Admin: 05/21/18 21:34 Dose: Not Given Mannitol (Mannitol) 40 gm IV DAILY [facility] Metformin HCl (Glucophage) 500 mg PO BID [facility] Last Admin: 05/22/18 08:26 Dose: 500 mg Oxycodone/Acetaminophen (Percocet 5/325 Mg Tab) 1 tab PO Q6 PRN PRN Reason: Pain, severe (8-10) Stop: 05/23/18 16:30 Last Admin: 05/21/18 17:28 Dose: 1 tab Pantoprazole Sodium (Protonix Ec Tab) 40 mg PO DAILY [facility] Last Admin: 05/22/18 08:30 Dose: 40 mg - Labs Labs: 05/22/18 04:25 05/22/18 04:25 PT 13.0 Seconds (9.8-13.1) 05/21/18 09:30 INR 1.2 05/21/18 09:30 APTT 30.0 Seconds (25.6-37.1) 05/21/18 09:30 - Constitutional Appears: Non-toxic, No Acute Distress - Eye Exam Eye Exam: Normal appearance, PERRL - ENT Exam ENT Exam: Mucous Membranes Moist, Normal Exam - Respiratory Exam Respiratory Exam: Clear to Ausculation Bilateral, NORMAL BREATHING PATTERN. absent: Decreased Breath Sounds, Prolonged Expiratory Phase, Rales, Rhonchi, Wheezes - Cardiovascular Exam Cardiovascular Exam: REGULAR RHYTHM, RRR, +S1, +S2. absent: Clicks, Diastolic murmur, Irregular Rhythm, JVD, Rubs, +S4, Murmur - GI/Abdominal Exam GI & Abdominal Exam: Soft, Normal Bowel Sounds. absent: Distended, Firm, Guarding, Rigid, Tenderness, Diminished Bowel Sounds, Organomegaly, Pulsatile Mass, Rebound - Extremities Exam Extremities Exam: Normal Inspection. absent: Calf Tenderness, Pedal Edema, T enderness (+2 Dorsalis pedis pulses bilaterally.) - Neurological Exam Neurological Exam: Alert. absent: Awake (Patient is sleepy and is clutching his head. Strength 5/5 bilaterally in all extremities. ) Additional comments: patient able to perform finger to nose without difficulty bilaterally. No ataxia appreciated. - Psychiatric Exam Psychiatric exam: Normal Affect - Skin Skin Exam: Dry, Intact, Normal Color, Warm Assessment and Plan (1) Seizure Status: Acute (2) Diabetes type 2, controlled Status: Acute (3) DVT prophylaxis Status: Acute - Assessment and Plan (Free Text) Assessment: 42 yo m with history of DM2 (recently diagnosed) presents to the E.D. with c omplaint of headache and dizziness found to have possible seizure-like activity this morning and new findings on CT scan of head admitted to r/o seizure and acute vs. subacute stroke. Plan: 1. Seizure - Given previous history of CVA at previous hospital last week and new CT findings of cerebellar edema, possibly secondary to CVA. - Patient placed on fall precautions. - Electrolytes within normal limits. - Neuro check Q1H - Neurology consult appreciated, Dr. Machuca: transfer patient to ICU and permissive HTN. Echo ordered. Decadron 8mg IV started as well as mannitol and neurosurgical consult placed. - EEG result pending. - Echo ordered. 2. Acute vs. subacute stroke- Questionable mass on repeat CT scan - MRI showed :Suspect right and right vermian infarct with hemorrhagic conversion.Secondary mass effect exerts compression on the right posterolateral border of the medulla and inferior hilary with compression of the 4th ventricle. Mild dilatation of the 3rd and lateral ventricles. Suspect small arachnoid cyst left sylvian fissure region. - Repeat CT scan of head without contrast: suspected right cerebellar neoplasm with extension to the right cerebellar peduncle and possibly midbrain. Punctate hemorrhage seen within the mass. Posterior fossa midline shift towards left- 8mm. Mass effect on 4th ventricle. - Neurology consult appreciated - Bed elevated to 45 degrees - Neuro checks Q4H - Hold ASA and lovenox due to hemorrhagic conversion - Hold antihypertensives to allow Permissive hypertension - Accucheck control - Neurosurgery consult appreciated. 3. Leukocytosis - Likely reactive - Continue to monitor. 4. Hypertension - chronic - All home blood pressure medications held to allow permissive HTN. - Continue to monitor V/S 5. DM type 2 - Continue Metformin 500mg BID - Accuchecks - Hypoglycemia protocol - Continue to monitor glucose. 6. DVT prophylaxis: - SCD's
[2018-05-22] MEDS: Mannitol 12.5 gm/50 ml Inj IV SCH (09:46)
[2018-05-22] MEDS ORDERED: Pneumococcal 23-Valent Vaccine IM ONE (11:00)
[2018-05-22] MEDS ORDERED: Influenza Vaccine (5 YR UP)/PF 60 MCG/0.5 ML SYR IM ONE (11:00)
[2018-05-22] MEDS: Insulin Lispro (humaLOG) 100 Units/ml Inj SC SCH ×3 (12:06→22:11)
--- NOTE | 2018-05-22 13:03 | CT ---
Date of service: 05/22/2018 PROCEDURE: CT HEAD WITHOUT CONTRAST. HISTORY: stroke COMPARISON: 05/21/2018 TECHNIQUE: Axial computed tomography images were obtained through the head/brain without intravenous contrast. Radiation dose: Total exam DLP = 817.72 mGy-cm. This CT exam was performed using one or more of the following dose reduction techniques: Automated exposure control, adjustment of the mA and/or kV according to patient size, and/or use of iterative reconstruction technique. FINDINGS: HEMORRHAGE: Focal punctate high attenuation within the right cerebellar mass described previously consistent with focal petechial hemorrhage. No gross hematoma. BRAIN: Low attenuation in the right cerebellar hemisphere with focal petechial hemorrhage and mass effect upon the 4th ventricle and brainstem with midline shift towards the left. Suspected neoplasm corresponding to an area of enhancement post gadolinium administration on MRI of 05/20/2018. No significant atrophy. No other mass identified. VENTRICLES: Third and lateral ventricles are unremarkable. CALVARIUM: Unremarkable. PARANASAL SINUSES: Unremarkable as visualized. No significant inflammatory changes. MASTOID AIR CELLS: Unremarkable as visualized. No inflammatory changes. OTHER FINDINGS: None. IMPRESSION: Suspected right sellar phelps or neoplasm with mass effect upon the 4th ventricle in midline shift. Petechial hemorrhage identified within this mass.
--- NOTE | 2018-05-22 15:34 | CP.CCUPN ---
CCU Subjective - Physician Review Subjective (Free Text): Events overnight reviewed, leading to [facility] transfer for observation and mgmt. 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 BP has been elevated up to 150 systolic, HR 90-100, RR 14, SPO2 95% on RA. Other vitals and I/O's reviewed. Afebrile , without fever spikes overnight. ROS: No other pertinent negs or positives on 10+ system review. PMSFH: All other Nursing and physician documentation reviewed to date; no new pertinent info noted relevant to current medical problems. EXAM- HEENT: no icterus, no gaze preference, pupils equal and reactive NECK: No JVD visible, supple, carotids equal upstroke bilat/no bruits CHEST: clear BS bilat, no wheezes audible HEART: regular, distant S1S2, no rubs ABD: soft, no increased distention, no tympany, no focal tenderness without radiation, BS hypoactive, no rebound. No CVAT. EXT: no peripheral/ digital cyanosis, no calf tenderness or palpable cords, distal pulses intact and symmetrical. NEURO: no gross focal motor deficits. SKIN: no new rashes, otherwise warm and dry. LABS: WBC= 11.9 HGB= 16.9 PLTs= 439K Ug=705 K= 4.4 CL= 95 HCO3= 25 BUN/Cr= 23/0.6 BS= [address] Brain study results reviewed: HEMORRHAGE: Focal punctate high attenuation within the right cerebellar mass described previously consistent with focal petechial hemorrhage. No gross hematoma. BRAIN: Low attenuation in the right cerebellar hemisphere with focal petechial hemorrhage and mass effect upon the 4th ventricle and brainstem with midline shift towards the left. Suspected neoplasm corresponding to an area of enhancement post gadolinium administration on MRI of 05/20/2018. No significant atrophy. No other mass identified. Suspected right sellar phelps or neoplasm with mass effect upon the 4th ventricle in midline shift. Petechial hemorrhage identified within this mass. IMPRESSION / MAJOR PROBLEMS NOW: 1. CVA versus Cerebellar Mass with midline shift, localized edema and petechial hemorrhage within the lesion zone. 2. Accelerated HTN 3. Azotemia PLAN: 1. Mannitol and steroids as per Neurology. 2. Amlodipine from home meds resumed to keep SBP no higher than 140 given evidence of ICH. 3. Seizure precautions, AEDs on hold for now. 4. Maintain Neurochecks, HOB elevation. Consider NSG consultation. If there is any deterioration in neuro mental status, should be transferred to tertiary medical center with dedicated neurocritical care monitoring capabilities. CCU Objective - Vital Signs / Intake & Output Vital Signs (Last 4 hours): Vital Signs Temp Pulse Resp BP Pulse Ox 05/22/18 14:00 92 H 14 141/72 95 05/22/18 12:00 98.4 F 107 H 10 L 128/78 97 Intake and Output (Last 8hrs): Intake & Output 05/22/18 05/22/18 05/22/18 06:59 14:59 22:59 Output Total 425 Balance -425 Weight 193 lb Output: Urine 425 Urine, Voided 425
[2018-05-22] MEDS: Oxycodone/Acetaminophen 5/325 mg Tab PO PRN (16:30)
--- NOTE | 2018-05-22 18:37 | CARD ---
APPROVED REPORT Date of service: 05/22/2018 EXAM: Two-dimensional and M-mode echocardiogram with Doppler and color Doppler. Other Information Quality : GoodRhythm : NSR INDICATION CVA/TIA 2D DIMENSIONS IVSd1.57 (0.7-1.1cm)LVDd3.89 (3.9-5.9cm) LVOT Diameter1.78 (1.8-2.4cm)PWd1.30 (0.7-1.1cm) IVSs1.30 (0.8-1.2cm)LVDs2.45 (2.5-4.0cm) FS (%) 37.0 %PWs1.65 (0.8-1.2cm) M-Mode DIMENSIONS Left Atrium (MM)3.76 (2.5-4.0cm)IVSd0.88 (0.7-1.1cm) Aortic Root2.53 (2.2-3.7cm)LVDd4.65 (4.0-5.6cm) Aortic Cusp Exc.2.03 (1.5-2.0cm)PWd1.21 (0.7-1.1cm) IVSs1.82 cmFS (%) 58 % LVDs1.97 (2.0-3.8cm)PWs2.18 cm Aortic Valve AoV Peak Jrnvrire097.0cm/sAoV VTI18.6cmAO Peak GR.7mmHg LVOT Peak Tamaqaim557.9cm/sLVOT VTI17.43cmAO Mean GR.4mmHg HIRAM (VMAX)1.44ux5NXK (VTI)1.19cm2 Mitral Valve MV E Nctxxbmx24.5cm/sMV DECEL [id number] A Ffjxhhai31.8cm/s MV ONF98qlV/A ratio1.0MVA (PHT)2.98cm2 TDI Lateral E' Peak V10.76cm/sMedial E' Peak V6.44cm/sE/Lateral E'5.3 E/Medial E'8.9 Pulmonary Valve PV Peak Chcysltt781.1cm/s Tricuspid Valve TR Peak Pgihqfau788tb/sRAP RBXNWTYV02ikKrDG Peak Gr.5mmHg VAKO41cwMi LEFT VENTRICLE The left ventricle is normal size. There is normal left ventricular wall thickness. The left ventricular systolic function is normal. The estimated ejection fraction is 60-65%. Calculated EF by Teichholz method is 67%. No regional wall motion abnormalities noted.. Transmitral Doppler flow pattern is Grade I-abnormal relaxation pattern. No left ventricle thrombus noted on this study. There is no ventricular septal defect visualized. There is no left ventricular aneurysm. There is no mass noted in the left ventricle. RIGHT VENTRICLE The right ventricle is normal size. There is normal right ventricular wall thickness. The right ventricular systolic function is normal. ATRIA The left atrium size is normal. The right atrium size is normal. The interatrial septum is intact with no evidence for an atrial septal defect. AORTIC VALVE The aortic valve is normal in structure. No aortic regurgitation is present. There is no aortic valvular stenosis. There is no aortic valvular vegetation. MITRAL VALVE The mitral valve is normal in structure. There is no evidence of mitral valve prolapse. There is no mitral valve stenosis. There is no mitral valve regurgitation noted. TRICUSPID VALVE The tricuspid valve is normal in structure. There is no tricuspid valve regurgitation noted. There is no tricuspid valve prolapse or vegetation. There is no tricuspid valve stenosis. PULMONIC VALVE The pulmonary valve is normal in structure. There is no pulmonic valvular regurgitation. There is no pulmonic valvular stenosis. GREAT VESSELS The aortic root is normal in size. The ascending aorta is normal in size. The pulmonary artery is normal. The IVC is normal in size and collapses >50% with inspiration. PERICARDIAL EFFUSION There is no pericardial effusion. There is no pleural effusion. <Conclusion> The estimated ejection fraction is 60-65%. Calculated EF by Teichholz method is 67%. Transmitral Doppler flow pattern is Grade I-abnormal relaxation pattern. The left atrium size is normal. The interatrial septum is intact with no evidence for an atrial septal defect. No obvious cardioembolic source for CVA.
[2018-05-23] MEDS: Oxycodone/Acetaminophen 5/325 mg Tab PO PRN (02:14)
[2018-05-23 05:16] LABS: HEMOGLOBIN 16.3 g/dL (12.0-18.0); MEAN CELL VOLUME 85.8 fl (80.0-94.0); RBC 5.43 Mil/uL (4.40-5.90); RED CELL DISTRIBUTION WIDTH 13.2 % (11.5-14.5); WHITE BLOOD COUNT 20.1 K/uL (4.8-10.8)
[2018-05-23 05:25] LABS: BLOOD UREA NITROGEN 29 mg/dl (9-20); CALCIUM 10.3 mg/dL (8.4-10.2); GFR NON-AFRICAN AMERICAN > 60
[2018-05-23] MEDS: Pantoprazole 40 mg EC Tab PO SCH (08:29)
[2018-05-23] MEDS: Insulin Lispro (humaLOG) 100 Units/ml Inj SC SCH ×3 (08:31→11:26)
[2018-05-23] MEDS: Mannitol 12.5 gm/50 ml Inj IV SCH (09:19)
[2018-05-23 10:04] VITALS: O2SAT 98
--- NOTE | 2018-05-23 12:04 | CP.PCM.DIS ---
Provider - Provider Date of Admission: 05/22/18 10:54 Attending physician: Daljit Suarez MD Primary care physician: NOne Consults: Neurology consult Time Spent in preparation of Discharge (in minutes): 15 Hospital Course - Lab Results Lab Results: Micro Results 05/21/18 08:45 Nose MRSA Culture (Admit) - Final MRSA NOT DETECTED Most Recent Lab Values WBC 20.1 K/uL (4.8-10.8) H D 05/23/18 04:18 RBC 5.43 Mil/uL (4.40-5.90) 05/23/18 04:18 Hgb 16.3 g/dL (12.0-18.0) 05/23/18 04:18 Hct 46.6 % (35.0-51.0) 05/23/18 04:18 MCV 85.8 fl (80.0-94.0) 05/23/18 04:18 MCH 30.0 pg (27.0-31.0) 05/23/18 04:18 MCHC 35.0 g/dL (33.0-37.0) 05/23/18 04:18 RDW 13.2 % (11.5-14.5) 05/23/18 04:18 Plt Count 457 K/uL (130-400) H 05/23/18 04:18 MPV 8.2 fl (7.2-11.7) 05/21/18 05:25 Neut % (Auto) 68.0 % (50.0-75.0) 05/21/18 05:25 Lymph % (Auto) 24.1 % (20.0-40.0) 05/21/18 05:25 Imperial % (Auto) 7.1 % (0.0-10.0) 05/21/18 05:25 Eos % (Auto) 0.6 % (0.0-4.0) 05/21/18 05:25 Baso % (Auto) 0.2 % (0.0-2.0) 05/21/18 05:25 Neut # (Auto) 9.6 K/uL (1.8-7.0) H 05/21/18 05:25 Lymph # (Auto) 3.4 K/uL (1.0-4.3) 05/21/18 05:25 Imperial # (Auto) 1.0 K/uL (0.0-0.8) H 05/21/18 05:25 Eos # (Auto) 0.1 K/uL (0.0-0.7) 05/21/18 05:25 Baso # (Auto) 0.0 K/uL (0.0-0.2) 05/21/18 05:25 PT 13.0 Seconds (9.8-13.1) 05/21/18 09:30 INR 1.2 05/21/18 09:30 APTT 30.0 Seconds (25.6-37.1) 05/21/18 09:30 Sodium 132 mmol/l (132-148) 05/23/18 04:18 Potassium 4.7 MMOL/L (3.6-5.0) 05/23/18 04:18 Chloride 95 mmol/L (98-107) L 05/23/18 04:18 Carbon Dioxide 25 mmol/L (22-30) 05/23/18 04:18 Anion Gap 17 (10-20) 05/23/18 04:18 BUN 29 mg/dl (9-20) H 05/23/18 04:18 Creatinine 0.6 mg/dl (0.8-1.5) L 05/23/18 04:18 Est GFR ( Amer) > 60 05/23/18 04:18 Est GFR (Non-Af Amer) > 60 05/23/18 04:18 POC Glucose (mg/dL) 168 mg/dL (65-110) H 05/22/18 21:59 Random Glucose 151 mg/dL (75-110) H 05/23/18 04:18 Hemoglobin A1c 6.9 % (4.2-6.5) H 05/20/18 10:58 Serum Osmolality 284 mosm/kg (272-300) 05/22/18 19:15 Calcium 10.3 mg/dL (8.4-10.2) H 05/23/18 04:18 Total Bilirubin 1.1 mg/dl (0.2-1.3) 05/20/18 09:20 AST 40 U/L (17-59) 05/20/18 09:20 ALT 113 U/L (21-72) H D 05/20/18 09:20 Alkaline Phosphatase 80 U/L (38-126) 05/20/18 09:20 Total Protein 8.9 G/DL (6.3-8.2) H 05/20/18 09:20 Albumin 4.7 g/dL (3.5-5.0) 05/20/18 09:20 Globulin 4.1 gm/dL (2.2-3.9) H 05/20/18 09:20 Albumin/Globulin Ratio 1.1 (1.0-2.1) 05/20/18 09:20 Triglycerides 155 mg/DL (0-149) H 05/21/18 09:30 Cholesterol 183 mg/dL (0-199) 05/21/18 09:30 LDL Cholesterol Direct 112 mg/dL (0-129) 05/21/18 09:30 HDL Cholesterol 46 MG/DL (30-70) 05/21/18 09:30 Prolactin 17.1 ng/mL (3.7-17.9) 05/20/18 09:20 - Hospital Course Hospital Course: 42 yo male recently diagnosed with cerebellar stroke ,DM . HTN presenbted to ED complaining of throbbing headaches little controlled with Fioricet. Patient was recently admitted at [facility] with diagnosis of cerebellar stroke and PICA occlusion . He was transferred to [facility] in [place] where he was monitored with multiple CT heads , treated for his newly diagnosed DM and HTN and discharged on 05/18 . As per last CT head from [facility] patient did have cerebellar edema with some shift, no mass seen .He came to [facility] complaining of headache , throbbing like located top of his head ,that is the same as when he was discharged and after had the stroke . He is complaining that his MEHTA is not very well controlled it comes and goes .He denied focal neuro deficits, gait disturbances or visual problems. There was suspected history of seizure like activity with rolling of his eyes explained from family members CT head showed:Low density within the right cerebellar hemisphere with edema causing leftward shift of the 4th ventricle. This is likely related to the reported subacute infarction seen at an outside hospital. Underlying right cerebellar mass could also cause this appearance. The ventricles are mildly prominent which may be related to involutional changes and/or mild obstructive hydrocephalus secondary to mass effect from edema. Correlation with outside imaging is recommended. MRI head :Suspected right and right vermian infarct with hemorrhagic conversion.Secondary mass effect exerts compression on the right posterolateral border of the medulla and inferior hilary with compression of the 4th ventricle. Mild dilatation of the 3rd and lateral ventricles. Neurology was consulted . Aspirin was discontinued . He was started on Pain medication , Manitol and Decadron IV Neurosurgery was consulted and recommended no intervention at this time His headache slightly improved . He remained hemadynamically stable, afebrile with no gross neurodeficits Discussed with neurology. At this point will discharge patient home with follow up with Dr Harrison and intervention neurologist as outpatient Will continue Decadron PO. Start Topamax and Ultram for MEHTA Continue diabetes and HTN management Will continue hold ASA due to hemorrhagic conversion 1. Acute on subactute cerebellar stroke with hemorrhagic conversion 2.Intractable headache due to cerebellar edema nad possible migraine headache 3, Hypertension 4. DM type II 5. Leukocytosis- reactive and secondary to decadron Discharge Exam - Head Exam Head Exam: NORMAL INSPECTION, NORMOCEPHALIC - Eye Exam Eye Exam: EOMI, PERRL Pupil Exam: NORMAL ACCOMODATION - ENT Exam ENT Exam: Mucous Membranes Moist, Normal Exam - Neck Exam Neck exam: Full Rom, Normal Inspection - Respiratory Exam Respiratory Exam: Clear to PA & Lateral, NORMAL BREATHING PATTERN. absent: Rales, Rhonchi, Wheezes - Cardiovascular Exam Cardiovascular Exam: REGULAR RHYTHM, RRR, +S1, +S2. absent: JVD - GI/Abdominal Exam GI & Abdominal Exam: Normal Bowel Sounds, Soft. absent: Distended, Guarding, Rebound, Tenderness - Rectal Exam Rectal Exam: Deferred - Extremities Exam Extremities exam: normal capillary refill, normal inspection, pedal pulses present - Back Exam Back exam: NORMAL INSPECTION - Neurological Exam Neurological exam: Alert, CN II-XII Intact, Oriented x3, Reflexes Normal - Psychiatric Exam Psychiatric exam: Normal Affect - Skin Skin Exam: Dry, Intact, Normal Color, Warm Discharge Plan - Discharge Medications Prescriptions: Dexamethasone [Decadron] 4 mg PO DAILY #14 tab Topiramate [Topamax] 25 mg PO BID #60 tab traMADol [Ultram] 50 mg PO TID PRN #30 tab PRN Reason: Pain, Severe (8-10) - Follow Up Plan Condition: STABLE Disposition: HOME/ ROUTINE Patient education suggested?: Yes Instructions: Stroke (DC), Seizures, Adult (DC) Referrals: Dipak Harrison MD [Medical Doctor] -
[2018-05-23 12:11] VITALS: BP 152/87; PULSE 94; RESP 16; TEMP 98.6
--- NOTE | 2018-05-23 21:53 | PN ---
DATE: 05/23/2018 LOCATION: The patient in ICU bed 434. TIME SPENT: 35 minutes. SUBJECTIVE: The patient is seen and evaluated at the bedside. Past medical, surgical, family and social history are reviewed. A 42-year-old male with a history significant for diabetes mellitus type 2 admitted with recent subacute infarct involving left cerebellum, admitted through emergency room complaining of headache and dizziness. Overnight, normotensive, afebrile on Decadron and mannitol, still complaining of headache. This morning alert and awake, follows commands appropriate. PHYSICAL EXAMINATION: VITAL SIGNS: Temperature 98.3, heart rate 92 regular, blood pressure 133/58, mean arterial pressure 83, respiratory rate 18, saturation 95% on room air. Intake 60 mL, output 425, negative balance 365. Weight 193 pounds. HEAD, EYES, EARS, NOSE AND THROAT: Pupils are reactive. Conjunctivae pink. Sclerae are white. NECK: Supple. Trachea is central. CHEST: Bilateral breath sounds clear to auscultation. HEART: Rhythm regular. S1, S2 normal intensity. No S3, S4 or gallop. No audible murmur. ABDOMEN: Bowel sounds present. Soft. Liver and spleen not palpable. Bladder not distended. EXTREMITIES: No clubbing, cyanosis or edema. NEUROLOGIC: Alert, oriented to name, place and time. Cranial nerves intact. No focal motor or deficit. No sensory impairment. SKIN: Without rash. No ecchymosis. CURRENT MEDICATIONS: Tylenol 650 mg every 6 hours p.r.n., Norvasc 10 mg p.o. daily, Lipitor 40 mg p.o. daily, Decadron 8 mg IV every 8 hours, mannitol 40 gm IV daily, metformin 500 mg p.o. twice daily, Percocet 5/325 mg every 6 hours p.r.n. for headache, Protonix 40 mg p.o. daily. LABORATORY DATA: WBC 20.1, hemoglobin 16.3, hematocrit 46.6, platelet count 457. PT 13, INR 1.2, PTT 30. SMA-7 sodium 132, potassium 4.7, chloride 95, CO2 25, blood urea nitrogen 29, creatinine 0.6, random glucose 151, calcium 10.3. IMPRESSION: 1. Neurologic: Subacute cerebellar infarct with hemorrhagic conversion, exerting mass effect on the fourth and third ventricle. Complaining of headache as a result of the infarct, currently on Decadron and mannitol, follow echocardiogram. Appreciate neuro recommendation for CT head and neck, lipid profile. No anticoagulation due to hemorrhagic conversion, permissive hypertension. Continue neuro checks every 2 hours, antiepileptics on hold. 2. Cardiac: Permissive hypertension given stroke. 3. Pulmonary: No acute issues. No sign of aspiration. Tolerating p.o. feeds. 4. Hematology. Leukocytosis secondary to Decadron, normal platelet count, hemoglobin/hematocrit remains stable. 5. Endocrine: History of diabetes mellitus type 2 on recent diagnosis, 1800 calories diet. Continue maintain blood sugar below 180. 6. Gastrointestinal: No acute issues noted. Lipid profile shows cholesterol 183, HDL of 46, LDL of 112. 7. Renal: No acute issues. Keep head up off bed 30 degrees up. Aspiration precautions. DVT and GI prophylaxis. Eugene Joy MD
== END 2018-05-23 14:24 | disposition home or self-care (01) | DRG 533 ==
LOC: H.ER 08:33 → H.ERHOLD 10:58 → OBSVTOIN 10:58 → INTOOBSV 10:58 → H.TEL 14:47 → H.ICU/CCU 05-21 20:50 → OBSVTOIN 05-22 10:54 → H.ICU/CCU 05-22 16:26
PROVIDERS: ADMIT Hospitalist; ATTEND Hospitalist
PROC: 3E0234Z Introduction of Serum, Toxoid and Vaccine into Muscle, Percutaneous Approach (ICD-10-PCS; principal; 2018-05-22)
DX: I63.9 Cerebral infarction, unspecified (principal); I61.9 Nontraumatic intracerebral hemorrhage, unspecified; R56.9 Unspecified convulsions; D72.829 Elevated white blood cell count, unspecified; T38.0X5A Adverse effect of glucocorticoids and synthetic analogues, initial encounter; Z86.73 Personal history of transient ischemic attack (TIA), and cerebral infarction without residual deficits; E78.00 Pure hypercholesterolemia, unspecified; F32.9 Major depressive disorder, single episode, unspecified; E11.9 Type 2 diabetes mellitus without complications; G93.6 Cerebral edema; I10 Essential (primary) hypertension; Z23 Encounter for immunization

== ENCOUNTER 2018-07-02 07:34 | Observation (INO) | payer OTHER ==
--- NOTE | 2018-07-02 08:16 | ED PDOC ---
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) Exam Limitations: no limitations - History of Present Illness Timing/Duration: 24 hours Associated Symptoms: other (headache and dizziness) Allergies/Adverse Reactions: Allergies No Known Allergies Allergy (Verified 07/02/18 11:17) Home Medications: Ambulatory Orders RX: Atorvastatin [Lipitor] 40 mg PO DAILY 05/20/18 RX: Lisinopril [Zestril] 10 mg PO DAILY 05/20/18 RX: Pantoprazole Sodium [Protonix] 40 mg PO DAILY 05/20/18 RX: amLODIPine [Norvasc] 10 mg PO DAILY 05/20/18 RX: metFORMIN [glucOPHAGE] 500 mg PO BID 05/20/18 Dexamethasone [Decadron] 4 mg PO DAILY #14 tab 05/23/18 Topiramate [Topamax] 25 mg PO BID #60 tab 05/23/18 traMADol [Ultram] 50 mg PO TID PRN #30 tab 05/23/18 Dexamethasone [Decadron] 4 mg PO DAILY 07/02/18 RX: Topiramate [Topamax] 25 mg PO BID 07/02/18 Additional Complaint(s): 40 year old male with a history of CVA (04/2018) and diabetes presents to the ED with headache and dizziness x 1 day. Patient states that he has not fully recovered from his stroke in April and feels pressure in his head often. Yesterday, he also began to experienced strong bouts of dizziness including when he walks. The patient ran out of his diabetes medication a month ago and has been unable to refill it. His sugar levels are 247 at arrival to the ED. He regularly takes Topamax but doesnt have any of the other meds he is supposed to be taking. Otherwise he denies chest pain, shortness of breath, a history of seizures and any other medical complaints. PMD: none provided NIHSS Stroke Scale - Date/Time Evaluation Performed Date Performed: 07/02/18 Time Performed: 07:52 - How Severe is the Stroke Level of Consciousness: 0=Alert LOC to Questions: 0=Both comments correct LOC to commands: 0=Obeys both correctly Best Gaze: 0=Normal Visual: 0=No visual loss Facial: 0=Normal Motor Arm - Left: 0=No drift Motor Arm - Right: 0=No drift Motor Leg - Left: 0=No drift Motor Leg - Right: 0=No drift Limb Ataxia: 0=Absent Sensory: 0=Normal Best Language: 0=No aphasia Dysarthia: 0=Normal articulation Extinction & Inattention (Neglect): 0=Normal, no object Score: 0 Past Medical History Reviewed: Historical Data, Nursing Documentation, Vital Signs Vital Signs: Last Vital Signs Temp 98 F 07/02/18 07:39 Pulse 56 L 07/02/18 07:51 Resp 18 07/02/18 07:51 BP 118/73 07/02/18 07:51 Pulse Ox 99 07/02/18 07:51 - Medical History PMH: CVA, Diabetes (type II) - Surgical History Surgical History: No Surg Hx - Family History Family History: States: Unknown Family Hx - Social History Current smoker - smoking cessation education provided: No Alcohol: None (used to drink occasionally; last drink was 3 months ago) Drugs: Denies - Immunization History Hx Tetanus Toxoid Vaccination: No Hx Influenza Vaccination: No Hx Pneumococcal Vaccination: No - Home Medications Home Medications: Ambulatory Orders Medication Instructions Recorded RX: Atorvastatin [Lipitor] 40 mg PO DAILY 05/20/18 RX: Lisinopril [Zestril] 10 mg PO DAILY 05/20/18 RX: Pantoprazole Sodium [Protonix] 40 mg PO DAILY 05/20/18 RX: amLODIPine [Norvasc] 10 mg PO DAILY 05/20/18 RX: metFORMIN [glucOPHAGE] 500 mg PO BID 05/20/18 Dexamethasone [Decadron] 4 mg PO DAILY #14 tab 05/23/18 Topiramate [Topamax] 25 mg PO BID #60 tab 05/23/18 traMADol [Ultram] 50 mg PO TID PRN #30 tab 05/23/18 Dexamethasone [Decadron] 4 mg PO DAILY 07/02/18 RX: Topiramate [Topamax] 25 mg PO BID 07/02/18 - Allergies Allergies/Adverse Reactions: Allergies Allergy/AdvReac Type Severity Reaction Status Date / Time No Known Allergies Allergy Verified 07/02/18 11:17 Review of Systems ROS Statement: Except As Marked, All Systems Reviewed And Found Negative Cardiovascular: Negative for: Chest Pain Respiratory: Negative for: Cough, Shortness of Breath Neurological: Positive for: Headache, Dizziness Physical Exam - Reviewed Nursing Documentation Reviewed: Yes Vital Signs Reviewed: Yes - Physical Exam Appears: Positive for: Non-toxic, No Acute Distress Head Exam: Positive for: ATRAUMATIC, NORMAL INSPECTION, NORMOCEPHALIC Skin: Positive for: Normal Color, Warm, Dry Eye Exam: Positive for: Normal appearance, EOMI, PERRL. Negative for: Nystagmus ENT: Positive for: Normal ENT Inspection Neck: Positive for: Normal, Painless ROM, Supple Cardiovascular/Chest: Positive for: Regular Rate, Rhythm. Negative for: Murmur Respiratory: Positive for: Normal Breath Sounds. Negative for: Wheezing, Respiratory Distress Gastrointestinal/Abdominal: Positive for: Normal Exam, Soft. Negative for: Tenderness, Guarding Back: Positive for: Normal Inspection. Negative for: L CVA Tenderness, R CVA Tenderness Extremity: Positive for: Normal ROM (upper and lower extremities), Other (5/5 debit agent strength bilaterally). Negative for: Tenderness, Deformity, Swelling Neurologic/Psych: Positive for: Alert, chemist assistant II-XII (intact), Oriented (x 3), Cerebellar Tests (negative), Gait (steady). Negative for: Motor/Sensory Deficits, Aphasia, Facial Droop - Laboratory Results Result Diagrams: 07/02/18 08:25 07/02/18 08:25 - ECG ECG: Positive for: Interpreted By Me, Viewed By Nv ECG Rhythm: Positive for: Sinus Bradycardia Rate: 53 O2 Sat by Pulse Oximetry: 99 (RA) Pulse Ox Interpretation: Normal Medical Decision Making Medical Decision Makin:11 Impression: headache and dizziness rule out stroke, rule out electrolyte abnormality Initial Plan: --Head CT w/o contrast --CMP --CBC --Urine cx --Urinalysis 08:[address] FINDINGS: HEMORRHAGE: No intracranial hemorrhage. BRAIN: No mass effect or edema. 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 Extensive focal encephalomalacia of the inferior right cerebellar hemisphere. No evidence of acute infarct. VENTRICLES: Unremarkable. No hydrocephalus. CALVARIUM: Unremarkable. PARANASAL SINUSES: Unremarkable as visualized. No significant inflammatory changes. MASTOID AIR CELLS: Unremarkable as visualized. No inflammatory changes. OTHER FINDINGS: None. 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 Otherwise unremarkable examination. 09:23 Sugar levels are elevated at 253. Anion gap is normal. --CXR --NS IV --Human Insulin 4 units SC 09:55 --Patient still complains of a headache. Ordered Meclizine 25 mg and Toradol 15 mg. 11:04 --Aspirin, troponin and swallow evaluation ordered. Will be admitted due to dehydration, uncontrolled diabetes, leukocytosis and dizziness. pt agreeabel to plan. spoke with Dr Olson, hospitalist (pt has no pcp) who accepts and takesover care of patient. Scribe Attestation: Documented by Lisa Nicolas acting as a scribe for Aleida Harrison MD Provider Scribe Attestation: All medical record entries made by the Scribe were at my direction and personally dictated by me. I have reviewed the chart and agree that the record accurately reflects my personal performance of the history, physical exam, medical decision making, and the department course for this patient. I have also personally directed, reviewed, and agree with the discharge instructions and disposition. Disposition - Clinical Impression Clinical Impression: Dizziness, Dehydration - Patient ED Disposition Is Patient to be Admitted: Yes Counseled Patient/Family Regarding: Studies Performed, Diagnosis - Disposition Disposition Time: 10:25 Condition: STABLE - Pt Status Changed To: Hospital Disposition Of: Observation
--- NOTE | 2018-07-02 08:40 | CT ---
Date of service: 07/02/2018 PROCEDURE: CT HEAD WITHOUT CONTRAST. HISTORY: headache COMPARISON: None available. TECHNIQUE: Axial computed tomography images were obtained through the head/brain without intravenous contrast. Radiation dose: Total exam DLP = 922.26 mGy-cm. This CT exam was performed using one or more of the following dose reduction techniques: Automated exposure control, adjustment of the mA and/or kV according to patient size, and/or use of iterative reconstruction technique. FINDINGS: HEMORRHAGE: No intracranial hemorrhage. BRAIN: No mass effect or edema. 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 Extensive focal encephalomalacia of the inferior right cerebellar hemisphere. No evidence of acute infarct. VENTRICLES: Unremarkable. No hydrocephalus. CALVARIUM: Unremarkable. PARANASAL SINUSES: Unremarkable as visualized. No significant inflammatory changes. MASTOID AIR CELLS: Unremarkable as visualized. No inflammatory changes. OTHER FINDINGS: None. 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 Otherwise unremarkable examination.
[2018-07-02 08:41] LABS: ALB/GLOB RATIO 1.4 (1.0-2.1); ALBUMIN 3.8 g/dL (3.5-5.0); ALT/SGPT 82 U/L (21-72); AST/SGOT 26 U/L (17-59); BLOOD UREA NITROGEN 21 mg/dl (9-20); GFR NON-AFRICAN AMERICAN > 60
[2018-07-02 08:44] LABS: BASO % 0.1 % (0.0-2.0); EOS % 0.2 % (0.0-4.0); LYMPH # 1.3 K/uL (1.0-4.3); MEAN CELL VOLUME 90.2 fl (80.0-94.0); MEAN CORPUSCULAR HEMOGLOBIN 30.4 pg (27.0-31.0); MEAN CORPUSCULAR HGB CONC 33.6 g/dL (33.0-37.0); MEAN PLATELET VOLUME 9.1 fl (7.2-11.7); MONO # 1.2 K/uL (0.0-0.8); MONO % 7.2 % (0.0-10.0); NEUT # 13.7 K/uL (1.8-7.0); NEUT % 84.5 % (50.0-75.0); NRBC % 0.2 % (0.0-0.0); PLATELET COUNT 249 K/uL (130-400); RED CELL DISTRIBUTION WIDTH 14.9 % (11.5-14.5); WHITE BLOOD COUNT 16.1 K/uL (4.8-10.8)
[2018-07-02] MEDS ORDERED: Sodium Chloride 0.9% 1,000 ML IV STA (09:23)
[2018-07-02] MEDS ORDERED: Insulin Regular 100 units/ml SC STA (09:23)
[2018-07-02] MEDS ORDERED: Insulin Regular 100 units/ml ONE (09:37)
[2018-07-02 12:01] LABS: LYMPHOCYTE 11 % (20-50); MONOCYTE 7 % (0-10); NEUTROPHIL 81 % (42-75); REACTIVE LYMPHOCYTES 1 % (0-0); TOTAL CELLS COUNTED 100
[2018-07-02 12:02] LABS: ANISOCYTOSIS SLIGHT; PLATELET ESTIMATE NORMAL (NORMAL)
--- NOTE | 2018-07-02 12:16 | CP.PCM.HP ---
History of Present Illness - History of Present Illness History of Present Illness: 40 yo male with history of DM2, HTN and recent history of CVA (04/2018) came in because of dizziness and headache since yesterday. The headache felt like increased pressure in his head. Patient was also unable to refill his medication for diabetes for over a month. He denied any motor or sensory deficit. Also denied SOB, chest pain, fever or chills. Present on Admission - Present on Admission Any Indicators Present on Admission: No History of DVT/PE: No History of Uncontrolled Diabetes: No Urinary Catheter: No Decubitus Ulcer Present: No Review of Systems - Review of Systems All systems: reviewed and no additional remarkable complaints except (aside from those mentioned above, 12 point system review were negative by me) Past Patient History - Tetanus Immunizations Tetanus Immunization: Unknown - Past Medical History & Family History Past Medical History?: Yes - Past Social History Smoking Status: Never Smoked Chewing Tobacco Use: No Cigar Use: No Alcohol: None (used to drink occasionally; last drink was 3 months ago) Drugs: Denies - CARDIAC Hx Hypercholesterolemia: Yes Hx Hypertension: Yes - PULMONARY Hx Respiratory Disorders: No - NEUROLOGICAL Hx Neurological Disorder: Yes HX Cerebrovascular Accident: Yes - HEENT Hx HEENT Problems: No - RENAL Hx Chronic Kidney Disease: No - ENDOCRINE/METABOLIC Hx Diabetes Mellitus Type 2: Yes - HEMATOLOGICAL/ONCOLOGICAL Hx Blood Disorders: No - INTEGUMENTARY Hx Dermatological Problems: No - MUSCULOSKELETAL/RHEUMATOLOGICAL Hx Musculoskeletal Disorders: No Hx Falls: No - GASTROINTESTINAL Hx Gastrointestinal Disorders: No - GENITOURINARY/GYNECOLOGICAL Hx Genitourinary Disorders: No - PSYCHIATRIC Hx Psychophysiologic Disorder: Yes Hx Depression: Yes Hx Substance Use: No - SURGICAL HISTORY Hx Surgeries: No - ANESTHESIA Hx Anesthesia: No Hx Anesthesia Reactions: No Hx Malignant Hyperthermia: No Meds Allergies/Adverse Reactions: Allergies Allergy/AdvReac Type Severity Reaction Status Date / Time No Known Allergies Allergy Verified 07/02/18 11:17 Physical Exam - Constitutional Appears: No Acute Distress - Head Exam Head Exam: ATRAUMATIC - Eye Exam Eye Exam: absent: Scleral icterus - ENT Exam ENT Exam: Mucous Membranes Moist - Neck Exam Neck exam: Negative for: Meningismus - Respiratory Exam Respiratory Exam: absent: Rales, Rhonchi, Wheezes, Respiratory Distress - Cardiovascular Exam Cardiovascular Exam: REGULAR RHYTHM, +S1, +S2 - GI/Abdominal Exam GI & Abdominal Exam: Soft. absent: Tenderness - Rectal Exam Rectal Exam: Deferred - Neurological Exam Neurological exam: Alert, Oriented x3 - Psychiatric Exam Psychiatric exam: Normal Affect - Skin Skin Exam: Dry, Intact Results - Vital Signs Recent Vital Signs: Last Vital Signs Temp 98 F 07/02/18 07:39 Pulse 53 L 07/02/18 11:47 Resp 16 07/02/18 09:41 BP 114/70 07/02/18 09:41 Pulse Ox 99 07/02/18 11:47 - Labs Result Diagrams: 07/02/18 08:25 07/02/18 08:25 Labs: Laboratory Results - last 24 hr 07/02/18 07/02/18 08:25 08:25 WBC 16.1 H RBC 4.30 L Hgb 13.0 Hct 38.8 MCV 90.2 MCH 30.4 MCHC 33.6 RDW 14.9 H Plt Count 249 MPV 9.1 Neut % (Auto) 84.5 H Lymph % (Auto) 8.0 L [place] % (Auto) 7.2 Eos % (Auto) 0.2 Baso % (Auto) 0.1 Neut # (Auto) 13.7 H Lymph # (Auto) 1.3 [place] # (Auto) 1.2 H Eos # (Auto) 0.0 Baso # (Auto) 0.0 Sodium 135 Potassium 3.7 Chloride 104 Carbon Dioxide 22 Anion Gap 13 BUN 21 H Creatinine 0.5 L Est GFR ( Amer) > 60 Est GFR (Non-Af Amer) > 60 Random Glucose 253 H Calcium 9.0 Total Bilirubin 0.5 AST 26 ALT 82 H Alkaline Phosphatase 58 Troponin I < 0.0120 Total Protein 6.6 Albumin 3.8 Globulin 2.8 Albumin/Globulin Ratio 1.4 Assessment & Plan - Assessment and Plan (Free Text) Assessment: 40 yo male with history of DM2, HTN and recent history of CVA (04/2018) came in because of dizziness and headache since yesterday. The headache felt like increased pressure in his head. Patient was also unable to refill his medication for diabetes for over a month. He denied any motor or sensory deficit. Also denied SOB, chest pain, fever or chills. 1. Dehydration continue IV hydration with NSS 125cc/hr repeat BMP and CBC in am 2. Recent History of CVA CT scan of Head: old right cerebellar infarct, no bleeding, mass effect or edema patient has no neurological deficit Tylenol 650mg PO q 4hrs for headache Lipitor 40mg PO HS 3. DM2 uncontrolled because of non-compliance accuchek ACHS HgA1C, BMP in am Metformin 500mg PO q am 4. HTN BP stable continue Amlodipine 10mg PO daily and Lisinopril 10mg PO daily
[2018-07-02 13:28] LABS: URINE BACTERIA OCC (<OCC); URINE BILIRUBIN NEGATIVE (NEGATIVE); URINE BLOOD NEGATIVE (NEGATIVE); URINE CLARITY SLIGHTY-CLOUDY (Clear); URINE COLOR YELLOW (YELLOW); URINE GLUCOSE (UA) NEG (Normal); URINE HYALINE CAST 0-2 /hpf (0-2); URINE LEUKOCYTE ESTERASE NEG Leu/uL (Negative); URINE PROTEIN NEGATIVE (NEGATIVE); URINE UROBILINOGEN 0.2-1.0 mg/dL (0.2-1.0)
--- NOTE | 2018-07-02 16:15 | RAD ---
Date of service: 07/02/2018 HISTORY: elevatede wbc COMPARISON: No prior. TECHNIQUE: Chest PA and lateral FINDINGS: LUNGS: No active pulmonary disease. PLEURA: No significant pleural effusion identified. No pneumothorax apparent. CARDIOVASCULAR: No aortic atherosclerotic calcification present. Normal cardiac size. No pulmonary vascular congestion. OSSEOUS STRUCTURES: No significant abnormalities. VISUALIZED UPPER ABDOMEN: Normal. OTHER FINDINGS: None. IMPRESSION: No active disease.
[2018-07-03 00:23] VITALS: RESP 18
[2018-07-03 05:29] LABS: BASO % 0.2 % (0.0-2.0); EOS % 0.1 % (0.0-4.0); HEMOGLOBIN 13.9 g/dL (12.0-18.0); LYMPH # 2.2 K/uL (1.0-4.3); LYMPH % 15.4 % (20.0-40.0); MEAN CORPUSCULAR HEMOGLOBIN 30.2 pg (27.0-31.0); MEAN PLATELET VOLUME 9.1 fl (7.2-11.7); MONO % 6.7 % (0.0-10.0); NEUT # 11.2 K/uL (1.8-7.0); NEUT % 77.6 % (50.0-75.0); NRBC % 0.1 % (0.0-0.0); RBC 4.58 Mil/uL (4.40-5.90); RED CELL DISTRIBUTION WIDTH 14.9 % (11.5-14.5); WHITE BLOOD COUNT 14.5 K/uL (4.8-10.8)
[2018-07-03 05:35] LABS: BLOOD UREA NITROGEN 20 mg/dl (9-20); CALCIUM 9.4 mg/dL (8.4-10.2); GFR NON-AFRICAN AMERICAN > 60
[2018-07-03 09:56] VITALS: O2SAT 99
[2018-07-03 11:59] VITALS: BP 102/69; PULSE 69
--- NOTE | 2018-07-03 13:52 | CP.PCM.DIS ---
Provider - Provider Date of Admission: 07/02/18 10:41 Attending physician: Selwyn Davalos MD Time Spent in preparation of Discharge (in minutes): 25 Diagnosis - Discharge Diagnosis (1) Dehydration Status: Acute Comment: patient improved with IV hydration (2) DM2 (diabetes mellitus, type 2) Status: Chronic Comment: continue Metformin 500mg PO BID Hospital Course - Lab Results Lab Results: Micro Results 07/02/18 13:14 Urine Urine Culture - Final No Growth (<1,000 CFU/ML) Most Recent Lab Values WBC 14.5 K/uL (4.8-10.8) H 07/03/18 04:20 RBC 4.58 Mil/uL (4.40-5.90) 07/03/18 04:20 Hgb 13.9 g/dL (12.0-18.0) 07/03/18 04:20 Hct 40.8 % (35.0-51.0) 07/03/18 04:20 MCV 89.0 fl (80.0-94.0) 07/03/18 04:20 MCH 30.2 pg (27.0-31.0) 07/03/18 04:20 MCHC 34.0 g/dL (33.0-37.0) 07/03/18 04:20 RDW 14.9 % (11.5-14.5) H 07/03/18 04:20 Plt Count 248 K/uL (130-400) 07/03/18 04:20 MPV 9.1 fl (7.2-11.7) 07/03/18 04:20 Neut % (Auto) 77.6 % (50.0-75.0) H 07/03/18 04:20 Lymph % (Auto) 15.4 % (20.0-40.0) L 07/03/18 04:20 [place] % (Auto) 6.7 % (0.0-10.0) 07/03/18 04:20 Eos % (Auto) 0.1 % (0.0-4.0) 07/03/18 04:20 Baso % (Auto) 0.2 % (0.0-2.0) 07/03/18 04:20 Neut # (Auto) 11.2 K/uL (1.8-7.0) H 07/03/18 04:20 Lymph # (Auto) 2.2 K/uL (1.0-4.3) 07/03/18 04:20 [place] # (Auto) 1.0 K/uL (0.0-0.8) H 07/03/18 04:20 Eos # (Auto) 0.0 K/uL (0.0-0.7) 07/03/18 04:20 Baso # (Auto) 0.0 K/uL (0.0-0.2) 07/03/18 04:20 Neutrophils % (Manual) 81 % (42-75) H 07/02/18 08:25 Lymphocytes % (Manual) 11 % (20-50) L 07/02/18 08:25 Reactive Lymphs % 1 % (0-0) H 07/02/18 08:25 Monocytes % (Manual) 7 % (0-10) 07/02/18 08:25 Platelet Estimate Normal (NORMAL) 07/02/18 08:25 Anisocytosis (manual) Slight 07/02/18 08:25 Sodium 136 mmol/l (132-148) 07/03/18 04:20 Potassium 3.8 MMOL/L (3.6-5.0) 07/03/18 04:20 Chloride 102 mmol/L (98-107) 07/03/18 04:20 Carbon Dioxide 23 mmol/L (22-30) 07/03/18 04:20 Anion Gap 15 (10-20) 07/03/18 04:20 BUN 20 mg/dl (9-20) 07/03/18 04:20 Creatinine 0.5 mg/dl (0.8-1.5) L 07/03/18 04:20 Est GFR ( Amer) > 60 07/03/18 04:20 Est GFR (Non-Af Amer) > 60 07/03/18 04:20 POC Glucose (mg/dL) 126 mg/dL (65-110) H 07/03/18 10:49 Random Glucose 113 mg/dL (75-110) H 07/03/18 04:20 Hemoglobin A1c 6.0 % (4.2-6.5) 07/03/18 04:20 Calcium 9.4 mg/dL (8.4-10.2) 07/03/18 04:20 Total Bilirubin 0.5 mg/dl (0.2-1.3) 07/02/18 08:25 AST 26 U/L (17-59) 07/02/18 08:25 ALT 82 U/L (21-72) H 07/02/18 08:25 Alkaline Phosphatase 58 U/L (38-126) 07/02/18 08:25 Troponin I < 0.0120 ng/mL (0.00-0.120) 07/02/18 08:25 Total Protein 6.6 G/DL (6.3-8.2) 07/02/18 08:25 Albumin 3.8 g/dL (3.5-5.0) 07/02/18 08:25 Globulin 2.8 gm/dL (2.2-3.9) 07/02/18 08:25 Albumin/Globulin Ratio 1.4 (1.0-2.1) 07/02/18 08:25 Urine Color Yellow (YELLOW) 07/02/18 13:14 Urine Clarity Slighty-cloudy (Clear) 07/02/18 13:14 Urine pH 6.0 (5.0-8.0) 07/02/18 13:14 Ur Specific [place] 1.013 (1.003-1.030) 07/02/18 13:14 Urine Protein Negative mg/dL (NEGATIVE) 07/02/18 13:14 Urine Glucose (UA) Neg mg/dL (Normal) 07/02/18 13:14 Urine Ketones Negative mg/dL (NEGATIVE) 07/02/18 13:14 Urine Blood Negative (NEGATIVE) 07/02/18 13:14 Urine Nitrate Negative (NEGATIVE) 07/02/18 13:14 Urine Bilirubin Negative (NEGATIVE) 07/02/18 13:14 Urine Urobilinogen 0.2-1.0 mg/dL (0.2-1.0) 07/02/18 13:14 Ur Leukocyte Esterase Neg [place]/uL (Negative) 07/02/18 13:14 Urine RBC (Auto) 2 /hpf (0-3) 07/02/18 13:14 Urine Microscopic WBC 1 /hpf (0-5) 07/02/18 13:14 Urine Bacteria Occ (<OCC) H 07/02/18 13:14 Hyaline Casts 0-2 /hpf (0-2) 07/02/18 13:14 - Hospital Course Hospital Course: 40 yo male with history of DM2, HTN and recent history of CVA (04/2018) came in because of dizziness and headache. CT scan of head was negative for bleeding, edema or infarct. The patient felt better with IV hydration and resumption of Metformin. Patient discharged today in stable condition. He was sent home with prescription for Metformin and Lisinopril and was advised to follow up in [facility] in a week. Discharge Exam - Head Exam Head Exam: ATRAUMATIC, NORMAL INSPECTION, NORMOCEPHALIC - Eye Exam Eye Exam: Normal appearance - ENT Exam ENT Exam: Mucous Membranes Moist - Respiratory Exam Respiratory Exam: absent: Rales, Rhonchi, Wheezes, Respiratory Distress - Cardiovascular Exam Cardiovascular Exam: REGULAR RHYTHM, +S1, +S2 - GI/Abdominal Exam GI & Abdominal Exam: Soft. absent: Tenderness - Rectal Exam Rectal Exam: Deferred - Back Exam Back exam: NORMAL INSPECTION - Neurological Exam Neurological exam: Alert, Oriented x3 - Psychiatric Exam Psychiatric exam: Normal Affect - Skin Skin Exam: Dry, Intact Discharge Plan - Discharge Medications Prescriptions: Lisinopril [Zestril] 10 mg PO DAILY #30 tab metFORMIN [glucOPHAGE] 500 mg PO BID #60 tab - Follow Up Plan Condition: STABLE Disposition: HOME/ ROUTINE Instructions: Dehydration, Adult (DC), Diabetes Type 2 (DC), Dizziness, Nonvertigo, (DC) Additional Instructions: laury en la clinica 07/23/18 a las 3:20pm con el doctor Referrals: [facility] [place] [Outside]
[2018-07-03 14:20] VITALS: TEMP 97.9
== END 2018-07-03 15:00 | disposition home or self-care (01) ==
LOC: EDBD → H.ER 07:34 → MERGE 07:34 → UNMERGE 07:34 → EDBD 10:41 → H.ERHOLD 10:41 → H.TEL 22:46
DX: E86.0 Dehydration (principal); I10 Essential (primary) hypertension; Z79.4 Long term (current) use of insulin; Z86.73 Personal history of transient ischemic attack (TIA), and cerebral infarction without residual deficits; Z91.19 Patient's noncompliance with other medical treatment and regimen; F32.9 Major depressive disorder, single episode, unspecified; D72.829 Elevated white blood cell count, unspecified; E11.65 Type 2 diabetes mellitus with hyperglycemia; E78.00 Pure hypercholesterolemia, unspecified
CPT/HCPCS: 36415; 70450; 71046; 80048; 80053; 81003; 82948; 83036; 84484; 85025; 87086; 96372; 96374; 99285; G0378; J1885; J7030

== ENCOUNTER 2018-07-13 08:34 | Emergency (ER) | payer OTHER ==
[2018-07-13 08:43] VITALS: BMI 31.8
[2018-07-13 10:06] LABS: BASO % 0.6 % (0.0-2.0); EOS # 0.1 K/uL (0.0-0.7); HEMOGLOBIN 12.6 g/dL (12.0-18.0); LYMPH # 1.5 K/uL (1.0-4.3); MEAN CELL VOLUME 91.2 fl (80.0-94.0); MEAN CORPUSCULAR HEMOGLOBIN 30.6 pg (27.0-31.0); MEAN CORPUSCULAR HGB CONC 33.6 g/dL (33.0-37.0); MEAN PLATELET VOLUME 8.8 fl (7.2-11.7); MONO # 0.3 K/uL (0.0-0.8); NEUT # 4.8 K/uL (1.8-7.0); NEUT % 71.4 % (50.0-75.0); NRBC % 0.1 % (0.0-0.0); RBC 4.12 Mil/uL (4.40-5.90); RED CELL DISTRIBUTION WIDTH 15.1 % (11.5-14.5); WHITE BLOOD COUNT 6.7 K/uL (4.8-10.8)
[2018-07-13 10:20] LABS: BLOOD UREA NITROGEN 11 mg/dl (9-20); CALCIUM 9.2 mg/dL (8.4-10.2); GFR NON-AFRICAN AMERICAN > 60
--- NOTE | 2018-07-13 10:43 | RAD ---
Date of service: 07/13/2018 HISTORY: chest pain COMPARISON: Chest radiographs 07/02/2018. FINDINGS: LUNGS: Limited pulmonary volumes. No acute airspace disease bilaterally nevertheless.. PLEURA: No significant pleural effusion identified, no pneumothorax apparent. CARDIOVASCULAR: No aortic atherosclerotic calcification present. Normal cardiac size. No pulmonary vascular congestion. OSSEOUS STRUCTURES: No significant abnormalities. VISUALIZED UPPER ABDOMEN: Normal. OTHER FINDINGS: None. IMPRESSION: Limited pulmonary volumes. No acute infiltrate bilaterally. No pulmonary vascular congestion.
[2018-07-13] MEDS ORDERED: Iodixanol 320 MG/ML 100 ML BOTTLE IV ONE (12:04)
[2018-07-13] MEDS ORDERED: Sodium Chloride 0.9% 50 ML IV ONE (12:04)
--- NOTE | 2018-07-13 12:09 | ED PDOC ---
HPI: Chest Pain Time Seen by Provider: 07/13/18 09:05 Chief Complaint (Nursing): Chest Pain Chief Complaint (Provider): Chest Pain History Per: Patient History/Exam Limitations: no limitations Onset/Duration Of Symptoms: Hrs (x1 hour area captain ) Additional Complaint(s): Waldemar Blank is a 40 year old male with a past medical history of HTN, diabetes and anxiety, who presents to the emergency department complaining of chest pain associated with palpitations, onset x1 hour area captain. Patient states he was at [employer] getting breakfast, when he started to feel mild chest pain with shortness of breath that resolved in 5 minutes. Presently, patient has no problems and no difficulty breathing. He further states he has had similar episodes twice before but with previous episode he had headache and dizziness. Patient reports that he felt better when he sat down and thinks that he would have passed out if he did not sit down. He denies any headache, dizziness, fever, leg swelling, nausea, vomiting, diarrhea or abdominal pain PMD: No provider Past Medical History Reviewed: Historical Data, Nursing Documentation, Vital Signs Vital Signs: Last Vital Signs Temp 98.6 F 07/13/18 08:43 Pulse 63 07/13/18 08:43 Resp 20 07/13/18 08:43 BP 132/79 07/13/18 08:43 Pulse Ox 99 07/13/18 08:43 - Medical History PMH: Anxiety, CVA, Depression, Diabetes, HTN, Hypercholesterolemia, Seizures Denies: HIV, Chronic Kidney Disease - Surgical History Surgical History: Appendectomy - Family History Family History: States: Unknown Family Hx - Home Medications Home Medications: Ambulatory Orders Medication Instructions Recorded RX: Atorvastatin [Lipitor] 40 mg PO DAILY 05/20/18 RX: traMADol [Ultram] 50 mg PO TID PRN #30 tab 05/23/18 RX: Topiramate [Topamax] 25 mg PO BID 07/02/18 RX: Lisinopril [Zestril] 10 mg PO DAILY #30 tab 07/03/18 RX: metFORMIN [glucOPHAGE] 500 mg PO BID #60 tab 07/03/18 - Allergies Allergies/Adverse Reactions: Allergies Allergy/AdvReac Type Severity Reaction Status Date / Time No Known Allergies Allergy Verified 07/02/18 11:17 DAMION Risk Score for UA/NSTEMI - DAMION Risk Score Age > 64: NO 3 or more CAD Risk Factors: YES Known CAD (Stenosis greater than 50%): NO Aspirin use in past 7 days: NO Severe Angina: NO EKG ST changes greater than 0.5mm: NO Positive Cardiac Marker: NO DAMION Score: 1 Risk %: 5% Wells Criteria for PE - Wells Criteria for Pulmonary Embolism Clinical Signs and Symptoms of DVT: No P.E is #1 Diagnosis, or Equally Likely: No Heart Rate >100: No Immobilization at least 3 days;Surgery previous 4 weeks: No Previous, objectively diagnosed PE or DVT: No Hemoptysis: No Malignancy w/treatment within 6 months, or palliative: No Total Score: 0 Review of Systems ROS Statement: Except As Marked, All Systems Reviewed And Found Negative Constitutional: Negative for: Fever Cardiovascular: Positive for: Chest Pain, Palpitations Respiratory: Positive for: Shortness of Breath Gastrointestinal: Negative for: Nausea, Vomiting, Abdominal Pain, Diarrhea Musculoskeletal: Negative for: Other (leg swelling) Neurological: Negative for: Headache, Dizziness Physical Exam - Reviewed Nursing Documentation Reviewed: Yes Vital Signs Reviewed: Yes - Physical Exam Appears: Positive for: Non-toxic, No Acute Distress Head Exam: Positive for: ATRAUMATIC, NORMOCEPHALIC Skin: Positive for: Normal Color, Warm, Dry Eye Exam: Positive for: Normal appearance, EOMI, PERRL ENT: Positive for: Normal ENT Inspection Neck: Positive for: Normal, Painless ROM, Supple Cardiovascular/Chest: Positive for: Regular Rate, Rhythm. Negative for: Murmur Respiratory: Positive for: Normal Breath Sounds. Negative for: Respiratory Distress Gastrointestinal/Abdominal: Positive for: Normal Exam, Soft. Negative for: T enderness Back: Positive for: Normal Inspection. Negative for: L CVA Tenderness, R CVA Tenderness, Vertebral Tenderness Extremity: Positive for: Normal ROM. Negative for: Pedal Edema, Deformity Neurologic/Psych: Positive for: Alert, Oriented (x3). Negative for: Motor/Sensory Deficits - Laboratory Results Result Diagrams: 07/13/18 09:59 07/13/18 09:59 - ECG ECG: Positive for: Interpreted By Me, Viewed By Me ECG Rhythm: Positive for: Normal QRS, Normal ST Segment, Sinus Rhythm (normal) Rate: 60 O2 Sat by Pulse Oximetry: 99 (RA) Pulse Ox Interpretation: Normal - Progress Re-evaluation Time: 17:00 Condition: Re-examined, Improved Medical Decision Making Medical Decision Making: Initial Time: 09:45 Impression: Chest pain, palpitations, near syncope Differential diagnosis includes but not limited to acute coronary syndrome, pulm onary embolism, cardiac arrhythmias. Plan: --EKG --monitoring analyst --BMP --Troponin I --CBC with differential --D dimer --Chest x-ray 10:25 Chest X-ray FINDINGS: LUNGS: Limited pulmonary volumes. No acute airspace disease bilaterally nevertheless.. PLEURA: No significant pleural effusion identified, no pneumothorax apparent. CARDIOVASCULAR: No aortic atherosclerotic calcification present. Normal cardiac size. No pulmonary vascular congestion. OSSEOUS STRUCTURES: No significant abnormalities. VISUALIZED UPPER ABDOMEN: Normal. OTHER FINDINGS: None. IMPRESSION: Limited pulmonary volumes. No acute infiltrate bilaterally. No pulmonary vascular congestion. 11:00 --Angio Chest PE protocol CT 13:[address] FINDINGS: PULMONARY ARTERIES: Unremarkable. No pulmonary embolism. AORTA: No acute findings. No thoracic aortic aneurysm. No aortic atherosclerotic calcification or mural plaque present. LUNGS: Unremarkable. No nodule, mass or pulmonary consolidation. PLEURAL SPACES: Unremarkable. No effusion or pneumothorax. HEART: The thoracic inlet appears unremarkable. Cardiac size appears upper limits normal. No pulmonary vascular congestion. LYMPH NODES: No lymphadenopathy. BONES, CHEST WALL: Unremarkable. No fracture or destructive lesion OTHER FINDINGS: Incidental mild splenomegaly to 13.5 cm. Tiny Bochdalek hernia medial left hemidiaphragm posteriorly, containing only mesenteric fat. IMPRESSION: Unremarkable CT pulmonary angiogram. No pulmonary embolus. No acute infiltrate, pleural or pericardial effusion. Cardiac size upper limits normal. No pulmonary vascular congestion. No thoracic aortic aneurysm appreciated. Incidental mild splenomegaly to 13.5 cm. 1700 Labs, trop x2 negative, CXR and EKG normal. Scribe Attestation: Documented by Walter Marx, acting as a scribe for Rosa M Pham MD. Provider Scribe Attestation: All medical record entries made by the Scribe were at my direction and personally dictated by me. I have reviewed the chart and agree that the record accurately reflects my personal performance of the history, physical exam, medic al decision making, and the department course for this patient. I have also personally directed, reviewed, and agree with the discharge instructions and disposition. Disposition - Clinical Impression Clinical Impression: Palpitations, Chest pain, Near syncope - Patient ED Disposition Is Patient to be Admitted: No Doctor Will See Patient In The: Office Counseled Patient/Family Regarding: Studies Performed, Diagnosis, Need For Followup - Disposition Referrals: [facility] [Outside] Disposition: Routine/Home Disposition Time: 17:23 Condition: GOOD Additional Instructions: WALDEMAR BLANK, thank you for letting us take care of you today. Your provider was Rosa M Pham MD and you were treated for CHEST PAIN. The emergency medical care you received today was directed at your acute symptoms. If you were prescribed any medication, please fill it and take as directed. It may take several days for your symptoms to resolve. Return to the Emergency Department if your symptoms worsen, do not improve, or if you have any other problems. Please contact your doctor or call one of the physicians/clinics you have been referred to that are listed on the Patient Visit Information form that is included in your discharge packet. Bring any paperwork you were given at [facility] with you along with any medications you are taking to your follow up visit. Our treatment cannot replace ongoing medical care by a primary care provider outside of the emergency department. Thank you for allowing the [facility] team to be part of your care today. If you had an X-Ray or CT scan: A Radiologist will review the ED reading if any change in treatment is needed we will contact you. If you had a blood, urine, or wound culture: It will take several days for the results, if any change in treatment is needed we will contact you. If you had an STI test: It will take 48 hours for the results. Please call after 1 week if you have not heard back. Instructions: Chest Pain (DC), Palpitations (DC) Print Language: YAKUT
--- NOTE | 2018-07-13 13:04 | CT ---
Date of service: 07/13/2018 PROCEDURE: CT Chest with contrast (Pulmonary Angiogram) HISTORY: chest pain COMPARISON: None available. TECHNIQUE: Axial computed tomography images were obtained of the chest in the pulmonary arterial phase of enhancement. Coronal and sagittal reformatted images were created and reviewed. Intravenous contrast dose: Visipaque 320, 90 cc Radiation dose: Total exam DLP = 370.27 mGy-cm. This CT exam was performed using one or more of the following dose reduction techniques: Automated exposure control, adjustment of the mA and/or kV according to patient size, and/or use of iterative reconstruction technique. FINDINGS: PULMONARY ARTERIES: Unremarkable. No pulmonary embolism. AORTA: No acute findings. No thoracic aortic aneurysm. No aortic atherosclerotic calcification or mural plaque present. LUNGS: Unremarkable. No nodule, mass or pulmonary consolidation. PLEURAL SPACES: Unremarkable. No effusion or pneumothorax. HEART: The thoracic inlet appears unremarkable. Cardiac size appears upper limits normal. No pulmonary vascular congestion. LYMPH NODES: No lymphadenopathy. BONES, CHEST WALL: Unremarkable. No fracture or destructive lesion OTHER FINDINGS: Incidental mild splenomegaly to 13.5 cm. Tiny Bochdalek hernia medial left hemidiaphragm posteriorly, containing only mesenteric fat. IMPRESSION: Unremarkable CT pulmonary angiogram. No pulmonary embolus. No acute infiltrate, pleural or pericardial effusion. Cardiac size upper limits normal. No pulmonary vascular congestion. No thoracic aortic aneurysm appreciated. Incidental mild splenomegaly to 13.5 cm.
[2018-07-14 00:56] VITALS: BP 132/74; RESP 18; TEMP 98.3
--- NOTE | 2018-07-14 09:13 | CARD ---
APPROVED REPORT Date of service: 07/13/2018 EKG Measurement Heart [id number] <Conclusion> Normal sinus rhythm Normal ECG
[2018-07-14 21:03] VITALS: PULSE 60; O2SAT 99
== END 2018-07-13 17:39 | disposition home or self-care (01) ==
LOC: H.ER 08:34 → SUPCPDRO 08:34 → H.ER 17:39
DX: R07.89 Other chest pain (principal); R00.2 Palpitations; R55 Syncope and collapse
CPT/HCPCS: 71045; 71275; 80048; 84484; 85025; 85378; 93005; 99284; Q9967

== ENCOUNTER 2018-10-28 11:32 | Emergency (ER) | payer MEDICAID, OTHER ==
[2018-10-28 11:32] VITALS: BMI 31.8
[2018-10-28] MEDS ORDERED: Tetracaine 0.5% Ophth 2 ML BOTTLE ONE (11:48)
[2018-10-28] MEDS ORDERED: Fluorescein 1 mg Ophthalmic Strip ONE (11:53)
--- NOTE | 2018-10-28 12:15 | ED PDOC ---
HPI: General Adult Time Seen by Provider: 10/28/18 12:08 Chief Complaint (Nursing): Eye Problem Chief Complaint (Provider): right eye erythema/pain History Per: Patient (41 Y/O MALE H/O CVA HERE WITH RIGHT EYE PAIN SINCE LAST NIGHT. UNSURE IF HE HAS HAD FOREIGN BODY IN EYE. NOTES ADDITIONAL INTERMITTENT PALPITATIONS. HAS GLASSES BUT DOES NOT WEAR. USE ARTIFICIAL TEARS FROM PHARMACY.) Past Medical History Reviewed: Historical Data, Nursing Documentation, Vital Signs Vital Signs: Last Vital Signs Temp Pulse 63 10/28/18 11:48 Resp BP Pulse Ox 98 10/28/18 11:49 - Medical History PMH: Anxiety, CVA, Depression, Diabetes, HTN, Hypercholesterolemia, Seizures Denies: HIV, Chronic Kidney Disease - Surgical History Surgical History: Appendectomy - Family History Family History: States: Unknown Family Hx - Home Medications Home Medications: Ambulatory Orders Medication Instructions Recorded Atorvastatin [Lipitor] 40 mg PO DAILY 05/20/18 traMADol [Ultram] 50 mg PO TID PRN #30 tab 05/23/18 Topiramate [Topamax] 25 mg PO BID 07/02/18 Lisinopril [Zestril] 10 mg PO DAILY #30 tab 07/03/18 metFORMIN [glucOPHAGE] 500 mg PO BID #60 tab 07/03/18 Ciprofloxacin 0.3% [Ciloxan 0.3% 1 drop RIGHTEYE QID #1 bottle [facility] - Allergies Allergies/Adverse Reactions: Allergies Allergy/AdvReac Type Severity Reaction Status Date / Time No Known Allergies Allergy Verified 10/28/18 11:49 Review of Systems ROS Statement: Except As Marked, All Systems Reviewed And Found Negative Eyes: Positive for: Pain Cardiovascular: Positive for: Palpitations Physical Exam - Reviewed Nursing Documentation Reviewed: Yes (BP 109/62. R 18. P 63. T 97.6) Vital Signs Reviewed: Yes (BP 109/62 visual acuity R 20/100 L 20/40 both 20/40) - Physical Exam Appears: Positive for: Well, Non-toxic, No Acute Distress Head Exam: Positive for: ATRAUMATIC, NORMAL INSPECTION, NORMOCEPHALIC Skin: Positive for: Normal Color, Warm, DRY Eye Exam: Positive for: EOMI, PERRL, Conjunctival injection (MODERATE INJECTION WITH EDEMA NOTED OF CONJUNCTIVA. PERRL. WITH NO FLUORESCEIN UPTAKE NOTED ON EXAM.), Other (tonopen right eye left eye ). Negative for: Normal appearance (redness right eye.) ENT: Positive for: Normal ENT Inspection Neck: Positive for: Normal, Painless ROM Cardiovascular/Chest: Positive for: Regular Rate, Rhythm Respiratory: Positive for: CNT, Normal Breath Sounds Gastrointestinal/Abdominal: Positive for: Normal Exam, Soft Back: Positive for: Normal Inspection Extremity: Positive for: Normal ROM Neurologic/Psych: Positive for: Alert, Oriented - Laboratory Results Result Diagrams: 10/28/18 12:08 10/28/18 12:08 - ECG ECG: Positive for: Viewed By Me ECG Rhythm: Positive for: Sinus Rhythm (NSR 63 WITH PAC WITH ABERRANT CONDUCTION) O2 Sat by Pulse Oximetry: 98 - Progress ED Course And Treament: D/W DR. STAFFORD. PATIENT TO GO TO HIS OFFICE TODAY AFTER ED VISIT. EKG: NSR WITH PACS NOTED. D/W PATIENT HE SHOULD ARRANGE OUTPATIENT WITH CARDIOLOGY Disposition - Clinical Impression Clinical Impression: Conjunctivitis - Patient ED Disposition Is Patient to be Admitted: No - Disposition Referrals: Mart Stafford MD [Staff Provider] - Jak Luther MD [Staff Provider] - Disposition: Routine/Home Disposition Time: 13:44 Condition: STABLE Prescriptions: Ciprofloxacin 0.3% [Ciloxan 0.3% Ophth SOLN] 1 drop RIGHTEYE QID #1 bottle Instructions: Palpitations, Conjunctivitis ([place]) Print Language: VENEZUELAN
[2018-10-28 12:17] LABS: BASO # 0.1 K/uL (0.0-0.2); BASO % 0.8 % (0.0-2.0); EOS # 0.1 K/uL (0.0-0.7); EOS % 0.9 % (0.0-4.0); HEMOGLOBIN 14.5 g/dL (12.0-18.0); LYMPH # 2.2 K/uL (1.0-4.3); LYMPH % 30.8 % (20.0-40.0); MEAN CORPUSCULAR HEMOGLOBIN 28.9 pg (27.0-31.0); MEAN CORPUSCULAR HGB CONC 33.6 g/dL (33.0-37.0); MEAN PLATELET VOLUME 10.1 fl (7.2-11.7); MONO # 0.4 K/uL (0.0-0.8); MONO % 5.7 % (0.0-10.0); NEUT # 4.4 K/uL (1.8-7.0); NEUT % 61.8 % (50.0-75.0); NRBC % 0.1 % (0.0-0.0); RBC 5.04 Mil/uL (4.40-5.90); RED CELL DISTRIBUTION WIDTH 13.4 % (11.5-14.5); WHITE BLOOD COUNT 7.1 K/uL (4.8-10.8)
[2018-10-28 12:29] LABS: ALB/GLOB RATIO 1.3 (1.0-2.1); ALBUMIN 4.5 g/dL (3.5-5.0); ALT/SGPT 34 U/L (21-72); AST/SGOT 24 U/L (17-59); BLOOD UREA NITROGEN 20 mg/dl (9-20); CALCIUM 9.5 mg/dL (8.4-10.2); GFR NON-AFRICAN AMERICAN > 60
--- NOTE | 2018-10-28 12:44 | RAD ---
Date of service: 10/28/2018 HISTORY: palpitations COMPARISON: 07/13/2018 FINDINGS: LUNGS: No active pulmonary disease. PLEURA: No significant pleural effusion identified, no pneumothorax apparent. CARDIOVASCULAR: No aortic atherosclerotic calcification present. Normal cardiac size. No pulmonary vascular congestion. OSSEOUS STRUCTURES: No significant abnormalities. VISUALIZED UPPER ABDOMEN: Normal. OTHER FINDINGS: None. IMPRESSION: No active disease. No interval pathology noted.
[2018-10-28 12:57] VITALS: RESP 18
[2018-10-28 13:00] VITALS: TEMP 97.6
[2018-10-28 13:53] VITALS: BP 119/86; PULSE 60
[2018-10-28 14:23] VITALS: O2SAT 98
--- NOTE | 2018-10-28 15:27 | CARD ---
APPROVED REPORT Date of service: 10/28/2018 EKG Measurement Heart [id number] <Conclusion> Sinus rhythm with frequent premature atrial complexes with aberrant conduction Abnormal ECG
== END 2018-10-28 13:48 | disposition home or self-care (01) ==
LOC: H.ER 11:32
DX: H10.9 Unspecified conjunctivitis (principal); R00.2 Palpitations; E11.9 Type 2 diabetes mellitus without complications; E78.00 Pure hypercholesterolemia, unspecified; F32.9 Major depressive disorder, single episode, unspecified; I10 Essential (primary) hypertension; Z79.84 Long term (current) use of oral hypoglycemic drugs; Z86.73 Personal history of transient ischemic attack (TIA), and cerebral infarction without residual deficits